=== PATIENT | male | born 1975 | race Caucasian/White ===

== ENCOUNTER 2021-09-26 | Outpatient (REF) | payer OTHER, SELFPAY ==
[2021-09-27 12:57] LABS: Influenza A PCR NEGATIVE (Negative); Influenza B PCR NEGATIVE (Negative); Resp Syncy Virus RNA Qual PCR NEGATIVE (Negative); SARS COV2 PCR INHOUSE NEGATIVE (Negative)
== END 2021-09-26 00:01 | disposition home or self-care (01) ==
LOC: HO.LNP
PROVIDERS: Visit Provider Physician Assistant Medical
DX: Z20.822 Contact with and (suspected) exposure to COVID-19 (principal); J06.9 Acute upper respiratory infection, unspecified
CPT/HCPCS: 0241U

== ENCOUNTER 2021-09-26 15:46 | Outpatient (REF) | payer OTHER, SELFPAY ==
--- NOTE | ~2021-09-26 | XR_ITS ---
EXAMINATION: XR CHEST CLINICAL INFORMATION: Cough, unspecified. R05.9 COMPARISON: Chest radiographs 05/05/2013 TECHNIQUE: 2 views of the chest were obtained. FINDINGS: There is some subtle airspace opacity adjacent to left cardiac border at the inferior lingula. The remainder the lungs are clear. There is no lobar or segmental airspace consolidation or effusion. Small right apical blebs again suggested. The heart is normal in size. The costophrenic sulci are clear. The hilar and mediastinal contours are normal. There is probable old posttraumatic deformity left anterior lateral sixth rib, not demonstrated on prior exam 2012. XR/XR chest 2V IMPRESSION: 1. Small patchy airspace opacity inferior lingula left anterior base. No effusion. 2. Probable healed left anterolateral sixth rib fracture.
== END 2021-09-26 15:47 | disposition home or self-care (01) ==
LOC: HO.HMGCX 15:46
PROVIDERS: Visit Provider Physician Assistant Medical
DX: R05.9 Cough, unspecified (principal)
CPT/HCPCS: 71046

== ENCOUNTER 2022-07-03 14:46 | Outpatient (REF) | payer OTHER, SELFPAY ==
--- NOTE | ~2022-07-03 | XR_ITS ---
EXAMINATION: XR RIBS, RIGHT CLINICAL INFORMATION: Contusion of chest wall COMPARISON: Previous chest x-ray most recent September 2021 TECHNIQUE: 3 views of the right ribs were obtained. FINDINGS: Lungs are clear. No consolidation, pneumothorax, or pleural effusion. The cardiomediastinal silhouette and pulmonary vasculature are normal. There are degenerative changes of the spine. No acute rib fracture is seen. There are old left anterior fourth and sixth rib fractures.. XR/XR ribs RT min 3V w CXR1V IMPRESSION: No evidence for acute disease in the chest. No acute rib fracture seen.
== END 2022-07-03 14:47 | disposition home or self-care (01) ==
LOC: HO.HMGCX 14:46
PROVIDERS: Visit Provider Internal Medicine
DX: S20.211A Contusion of right front wall of thorax, initial encounter (principal)
CPT/HCPCS: 71101

== ENCOUNTER 2025-08-31 05:38 | Inpatient (IN) | payer MEDICAID, SELFPAY ==
--- NOTE | ~2025-08-31 | XR_ITS ---
EXAMINATION: XR CHEST CLINICAL INFORMATION: dyspnea, smoker COMPARISON: 07/03/2022. TECHNIQUE: 2 views of the chest were obtained. FINDINGS: The cardiac, hilar, and mediastinal contours are normal. The lungs are diffusely hyperaerated, with flattened hemidiaphragms. There is a subtle airspace opacity in the left upper lobe region. Lungs otherwise clear. There is no pneumothorax or pleural effusion. There is no focal osseous or soft tissue abnormality. Healed left-sided rib fractures are noted. Mild degenerative changes throughout the spine. XR/XR chest 2V IMPRESSION: 1. COPD. 2. Findings suspicious for a subtle left upper lobe pneumonia. Electronically signed by: Derek Mora MD 08/31/2025 08:16 AM EDT
--- NOTE | ~2025-08-31 | CT_ITS ---
EXAMINATION: CT CHEST WITHOUT CONTRAST CLINICAL INFORMATION: Pneumonia COMPARISON: None available. TECHNIQUE: Multidetector volumetric CT imaging of the chest was done. Axial MIP volume rendering provided. Sagittal and coronal reformatted images were obtained. This CT examination was performed using dose optimization techniques as appropriate, variously including the following: *Automated exposure control *Adjustment of mA and/or kV according to patient size (this includes techniques or standardized protocols for targeted exams where dose is matched to indication/reason for exam; i.e. extremities or head) *Use of iterative reconstruction technique FINDINGS: LUNGS: Centrilobular and paraseptal emphysema is noted in the lung apexes Vague opacity noted in the left upper lung zone on chest x-ray was probably related to overlap of bony and vascular structures, and no corresponding density is present on CT. Linear atelectasis present in the posterior basilar right lower lobe. MEDIASTINUM: The mediastinum is normal. CORONARY ARTERY CALCIFICATION: Present PLEURA: There is no pleural effusion. No pleural mass or thickening. AXILLA: No lymphadenopathy. UPPER ABDOMEN: Unremarkable. OSSEOUS STRUCTURES: Bridging anterior osteophytes are present in the mid to upper thoracic spine. CT/CT chest wo IV con IMPRESSION: Vague opacity present on today's x-ray is likely related to overlapping structures. No obvious demonstrated on CT. Mild changes of emphysema are present in the lung apexes. Mild degenerative disc disease is present in the mid to upper thoracic spine. Fleischner guidelines were followed. Electronically signed by: Wood Black MD 08/31/2025 12:03 PM EDT
[2025-08-31 05:42] VITALS: BP 145/99; BP 182/114; PULSE 108; PULSE 65; RESP 16; TEMP 36.6; O2SAT 96; O2SAT 99; BMI 25.4
[2025-08-31 05:46] VITALS: BP 145/99; PULSE 111; RESP 20; TEMP 36.4; O2SAT 96
[2025-08-31 05:55] LABS: Glucose, Whole Blood 134 mg/dL (60-115)
--- OUTSIDE RECORDS SUMMARY | 2025-08-31 06:28 | XMS_ITS | Patient Health Record ---
Author Organization [facility] Address [address] [place] [address] Care Team Providers Care Belt Notcher Name Role Phone Ladarius Flores M.D. Primary Care Provider Anahy hungjacobBarry Dunne Unavailable [phone] Reason For Referral No Information Medications Medication SIG (Take, Route, Fr equency, Duration) Notes Start Date End Date Status Omeprazole 20mg 2 capsules Orally On ce a day; Duration: 30 days Active PriLOSEC OTC 20 mg TAKE 2 TABLET BY MING TH IN THE MORNING; Duration: 30 Active Problems Problem Type SNOMED Code ICD Code Onset Dates Problem Status W/U Status Risk Notes Problem Barretts esophagus (891313234) Barretts esophagus (530.85) Active confirmed Problem Gastroesophageal reflux disease (136520075) GERD (gastroesopha geal reflux disease) (530.81) Active confirmed Plan Of Treatment Future Test Test Name Order Date UPPER GI ENDOSCOPY 04/17/2012 Insurance Providers Payer Name Payer Address Payer Phone Subscriber Number Group Number Insured Name Patient Relationship to Insured Coverage Start Date Coverage End Date [facility] [facility] [address] [address] [place], [place] [id number] JORGE ALBERTO PATEL Self - patient is the insured MEDICAID OF [facility] [address] [place] [address] [id number] JORGE ALBERTO PATEL Self - patient is the insured Medical (General) History Medical History History ICD Code egd 08-27-2006 and 08/26 esophageal reflux vargas's esophagus asthma Denies [place],DM,CVA,renal disease Surgical History Surgery Date(Month/Year) hernia surgery
--- NOTE | 2025-08-31 06:51 | ED.GENADULT ---
HPI - General Adult General Chief complaint: Extremity Problem Stated complaint: BILATERAL LEG PAIN/NUMBNESS/HX OF ASTHMA Time Seen by Provider: 08/31/25 06:51 History of Present Illness ED Provider: Tejas MORRISON narrative: The patient is a 50-year-old male who comes to the emergency room by ambulance because of pains in both of his legs. He says he has been having intermittent pains in his legs for approximately a year. The pains wax and wane. Last night the pain was so bad that he felt he had come to the hospital because of the pains. The patient has not seen a doctor in several years. He says that he used to have a primary care doctor named Dr. Flores but Dr. Flores retired and he has not seen a doctor in several years. The patient is an alcoholic. He says that he has 6-8 hard seltzers every day. He is a long-term smoker who still smokes. 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 He says that he [place] his own [place]. He says [place] the [place]. He says that he lives on an inheritance from his parents. He says he has a trust which gives him regular pain and some money. He lives with his girlfriend. He says he has a history of asthma but has not seen a doctor in any time recently and he treats himself with Primatene mist which he buys [id number]. He says that he uses a Primatene mist inhaler almost every day. With regard to the pains in his legs he says that these pains has been coming and going for a year. He also says that 3 weeks ago when the pains were severe he almost passed out at his house. He has had no trauma. No fever, sweats, chills. Related Data Home Medications ?Medication ?Instructions ?Recorded ?Confirmed omeprazole 20 mg capsule,delayed 40 mg PO DAILY 09/26/21 07/12/22 release Previous Rx's ?Medication ?Instructions ?Recorded albuterol sulfate 90 mcg/actuation 2 puff inhalation Q6H PRN 09/26/21 aerosol inhaler shortness of breath or wheezing #6.7 grams doxycycline hyclate 100 mg tablet 100 mg PO BID 7 days #14 tabs 09/26/21 meloxicam 15 mg tablet 15 mg PO DAILY #14 tabs 07/03/22 Allergies Allergy/AdvReac Type Severity Reaction Status Date / Time No Known Allergies Allergy Verified 08/31/25 05:47 Review of Systems Review of Systems: Yes all other systems are reviewed and are negative [facility] Past Medical History Medical History (Updated 08/31/25 @ 10:53 by Shaylee Magallanes NP) COPD (chronic obstructive pulmonary disease) Surgical History (Updated 08/31/25 @ 11:22 by Shaylee Magallanes NP) H/O hernia repair Family History Family History (Updated 08/31/25 @ 11:21 by Shaylee Magallanes NP) Father Cancer Social History Social History (Updated 08/31/25 @ 10:56 by Shaylee Magallanes NP) Alcohol intake: current Alcohol intake frequency: 3 or more drinks per day Alcohol type: hard liquor Comment: Twelve white claws a day Patient Tobacco Use Status: Current everyday Tobacco user Cigarette Packs Per Day: 1 Smoked in Last 30 Days: Yes Use of substances other than those prescribed or required for medical reasons: Yes Substance Use Type: Marijuana Substance Use Frequency: Chronic Longstanding Last Used Substance: Days (ago) Any prior treatment program specific to substance use: No Advance Directives: No Advance Directives Information Provided: Yes Physical Exam ED Vital Signs: Vital Signs - 24 hr 08/31/25 05:42 08/31/25 05:46 08/31/25 09:50 Temperature 97.8 F 97.6 F 98.3 F Pulse Rate 108 H 111 H 99 Respiratory Rate 16 20 20 Blood Pressure 145/99 H 145/99 H 180/130 H Pulse Oximetry 96 96 96 Oxygen Delivery Method Room Air Room Air Room Air BMI result Body Mass Index 25.4 Const Other: The patient is a 50-year-old male who looks disheveled and chronically ill. HENMT Other: The patient has poor dentition. Mucous membranes are moist. The face is symmetrical. Eyes Other: Pupils are round equal, conjunctivae are clear, extraocular movements intact Neck Neck: Yes normal visual inspection, Yes full ROM and Yes no JVD Resp Effort & Inspection: normal respiratory effort Auscultation: clear to auscultation bilaterally Cardio Rate: tachycardic Rhythm: regular rhythm Heart sounds: S1 normal heart sound present and S2 normal heart sound present GI Other: The abdomen is soft and nontender Skin Other: Skin is pale and dry Neuro Other: The patient is awake and alert with a normal mental status. GCS is 15. Cognition is intact. No marked tremor. Cranial nerves 2-12 are intact. He moves his extremities symmetrically and appropriately. He seems grossly neurologically intact. Extrem Other: No peripheral edema. No calf swelling or tenderness. Good pulses in both feet. Medications Administered Generic Name Dose Route Start Last Admin Trade Name Freq PRN Reason Stop Dose Admin Albuterol Sulfate 2.5 mg 08/31/25 12:00 08/31/25 11:17 Albuterol Sulfate (0.083%) 2.5 Mg/3 Ml Vial.Neb INHALE 2.5 mg RQ4H WHILE AWAKE JUN Administration Enoxaparin Sodium 40 mg 08/31/25 12:00 08/31/25 12:11 Enoxaparin Sodium 40 Mg/0.4 Ml Syringe SUBCUT 40 mg Q24H JUN Administration Gabapentin 100 mg 08/31/25 11:05 08/31/25 12:11 Gabapentin 100 Mg Capsule PO 100 mg TID JUN Administration Potassium Chloride/Sodium Chloride 40 meq in 1,000 mls @ 250 mls/hr 08/31/25 08:45 08/31/25 10:31 Kcl 40 Meq In 0.9 % Sodium Chl IV 08/31/25 12:44 250 mls/hr .Q4H JUN Administration Magnesium Oxide 400 mg 08/31/25 10:05 08/31/25 10:47 Magnesium Oxide 400 Mg Tablet PO 400 mg BIDPC JUN Administration Discontinued Medications Generic Name Dose Route Start Last Admin Trade Name Freq PRN Reason Stop Dose Admin Famotidine 20 mg 08/31/25 11:16 08/31/25 12:10 Famotidine/Pf 20 Mg/2 Ml Vial IVPUSH 08/31/25 11:17 20 mg ONCE ONE Administration Thiamine HCl 100 mg/ Sodium 101 mls @ 202 mls/hr 08/31/25 07:22 08/31/25 09:37 Chloride IV 08/31/25 07:51 Infused ONCE ONE Infusion Folic Acid 1 mg/ Sodium 50.2 mls @ 100.4 mls/hr 08/31/25 08:00 08/31/25 09:38 Chloride IV 08/31/25 08:29 Infused ONCE ONE Infusion Magnesium Sulfate 2 gm in 50 mls @ 150 mls/hr 08/31/25 08:15 08/31/25 10:08 Magnesium Sulfate/H2o IV 08/31/25 08:34 Infused ONCE ONE Infusion Magnesium Sulfate 2 gm in 50 mls @ 150 mls/hr 08/31/25 10:01 08/31/25 11:16 Magnesium Sulfate/H2o IV 08/31/25 10:20 Infused ONCE ONE Infusion Phenobarbital Sodium 312 mg 08/31/25 11:00 08/31/25 12:14 Phenobarbital Sodium 130 Mg/Ml Im Once IM 08/31/25 11:01 312 mg ONCE ONE Administration Potassium Chloride 40 meq 08/31/25 09:36 08/31/25 09:49 Potassium Chloride Packet 20 Meq Packet PO 08/31/25 09:37 40 meq ONCE ONE Administration Medical Decision Making Medical Decision Making [facility] Narrative: The patient is a 50-year-old male who seems to be a significant alcoholic and a heavy smoker. He presents with a bilateral leg pain which has been bothering him for a long time. His testing in the emergency room reveals a potassium of 2.5 and a magnesium of 1.0. It is possible his pain could be related to these metabolic abnormalities. Additionally he was hypertensive and tachycardic. He normally drinks 6-8 hard seltzers daily. His last alcohol was yesterday afternoon. His alcohol is undetectable at the moment. I suspect he has an early withdrawal. We have ordered magnesium and potassium supplementation. Given the degree of his electrolyte abnormalities and given his hypertension and tachycardia I think that admission to the hospital with treatment for alcohol withdrawal and electrolyte replacement is reasonable. I contacted the hospitalist. The patient will be admitted for further care. He was also given thiamine and folate. He was started on the phenobarb protocol. Lab Data 08/31/25 07:31 08/31/25 07:31 Labs: Lab Results 08/31/25 08/31/25 08/31/25 Range/Units 05:51 07:31 07:38 WBC 9.5 (4.8-10.8) X10*3/uL RBC 3.13 L (4.60-5.80) X10*6/uL Hgb 11.0 L (14.0-18.0) g/dl Hct 30.0 L (42.0-52.0) % MCV 95.8 (80.0-98.0) fL MCH 35.1 H (27.0-33.0) pg MCHC 36.7 H (31.0-36.0) g/dl RDW 17.7 H (11.0-16.0) % Plt Count 300 (160-400) X10*3/uL MPV 10.2 (9.4-12.4) fL Immature Gran % (Auto) 0.6 H (0.0-0.4) % Neut % (Auto) 77.8 H (45-73) % Lymph % (Auto) 13.0 L (20-40) % [place] % (Auto) 7.8 (2-11) % Eos % (Auto) 0.2 (0-4) % Baso % (Auto) 0.6 (0-2) % Lymph # (Auto) 1.2 (1.2-4.9) X10*3/uL [place] # (Auto) 0.7 (0.1-1.2) X10*3/uL Eos # (Auto) 0.0 (0.0-0.4) X10*3/uL Baso # (Auto) 0.1 (0.0-0.2) X10*3/uL Abs Immat Gran (auto) 0.06 H (0.00-0.03) X10*3/uL Absolute Neuts (auto) 7.4 (2.0-8.3) x10*3/uL Absolute Nucleated RBC 0.000 (0.0-0.012) X10*3/uL Nucleated RBC % (auto) 0.0 (0.0-0.2) /100WBC PT 13.2 H (10.9-12.4) SEC INR 1.2 H (0.9-1.1) VBG pH 7.67 H* (7.32-7.43) VBG pCO2 38 mmHg VBG pO2 48 mmHg VBG HCO3 44 H (22-26) mmol/L VBG O2 Saturation 74.0 % VBG Base Excess 22.4 mmol/L Sodium 139 (135-145) mmol/L Potassium 2.5 L* (3.3-5.1) mmol/L Chloride 89 L (96-108) mmol/L Carbon Dioxide 35 H (22-29) mmol/L Anion Gap 18 (12-20) BUN 5 L (9-16) mg/dL Creatinine 0.59 (0.5-1.4) mg/dL Estim Creat Clear Calc 164.4 Estimated GFR > 60 POC Glucose 134 H (60-115) mg/dL Random Glucose 111 (60-115) mg/dL Calcium 7.6 L (8.4-10.2) mg/dL Magnesium 1.0 L* (1.6-2.6) mg/dL Total Bilirubin 1.1 H (0.0-1.0) mg/dL Direct Bilirubin 0.5 (0.0-0.5) mg/dL AST 66 H (5-37) U/L ALT 8 (0-40) U/L Alkaline Phosphatase 94 (39-117) U/L Total Creatine Kinase 53 (38-174) U/L Troponin I High Sens 18.9 (<3.5-35.0) ng/L C-Reactive Protein 4.27 H (< or = 0.50) mg/dL Total Protein 6.2 L (6.5-8.0) g/dL Albumin 3.3 L (3.5-5.0) g/dL Lipase 13 (8-78) U/L Ethyl Alcohol < 10 mg/dL Independent Interpretation I performed an independent interpretation of an: EKG Interpretation: EKG at 07:11 shows normal sinus rhythm at 100 beats per minute. There is a lot of artifact in the baseline of the EKG. No definite acute ischemic changes. QTc mildly prolonged at 528. Critical Care Time Critical Care Time Critical Care Time: Yes Total Critical Care Time: 35 Attestation: The patient was critically ill with a high probability of imminent or life-threatening deterioration. ?I spent greater than 30 minutes of discontinuous time evaluating the patient, delivering critical care at the bedside, discussing evaluating data with consultants. ?Critical care time does not include time spent performing separately billable procedures or teaching. ?Time spent performing critical care with 35 minutes. Discharge Plan Discharge Clinical Impression: Hypokalemia, Hypomagnesemia, Alcoholism, Alcohol withdrawal, Leg pain, bilateral Patient Disposition: Admitted As Inpatient
--- NOTE | 2025-08-31 07:01 | ECG_ITS ---
Test Reason : leg pain Blood Pressure : */* mmHG Vent. Rate : 100 BPM Atrial Rate : 100 BPM P-R Int : 168 ms QRS Dur : 82 ms QT Int : 410 ms P-R-T Axes : 21 19 65 degrees QTcB Int : 528 ms Normal sinus rhythm Nonspecific ST abnormality Abnormal ECG When compared with ECG of 03-Sep-2019 09:47, QT has lengthened Referred By: Rob Lazaro Electronically Signed By: Sina Ogden
[2025-08-31 07:38] LABS: MANUAL DIFF FLAG NO
[2025-08-31 07:46] LABS: INTERNATIONAL NORM RATIO 1.2 (0.9-1.1); Prothrombin Time 13.2 SEC (10.9-12.4); Venous Blood Gas Refer to POC result
[2025-08-31 07:47] LABS: VBG HCO3 44 mmol/L (22-26); VBG O2 % Saturation 74.0 %
[2025-08-31 07:52] LABS: Hematocrit 30.0 % (42.0-52.0); Hemoglobin 11.0 g/dl (14.0-18.0); Imm Gran Abs Auto 0.06 X10*3/uL (0.00-0.03); Imm Gran Pct Auto 0.6 % (0.0-0.4); Lymphocytes Absolute Auto 1.2 X10*3/uL (1.2-4.9); Mean Corpuscular HGB Conc 36.7 g/dl (31.0-36.0); Mean Corpuscular Hemoglobin 35.1 pg (27.0-33.0); Mean Corpuscular Volume 95.8 fL (80.0-98.0); NRBC Abs Auto 0.000 X10*3/uL (0.0-0.012); NRBC Pct Auto 0.0 /100WBC (0.0-0.2); Platelet Count 300 X10*3/uL (160-400); Red Blood Count 3.13 X10*6/uL (4.60-5.80); White Blood Count 9.5 X10*3/uL (4.8-10.8)
[2025-08-31 08:00] LABS: Troponin-I High Sensitivity 18.9 ng/L (<3.5-35.0)
[2025-08-31 08:07] LABS: Alanine Aminotransferase 8 U/L (0-40); Albumin Level 3.3 g/dL (3.5-5.0); Alkaline Phosphatase 94 U/L (39-117); Anion Gap 18 (12-20); Aspartate Amino Transferase 66 U/L (5-37); Blood Urea Nitrogen 5 mg/dL (9-16); Calcium 7.6 mg/dL (8.4-10.2); Carbon Dioxide 35 mmol/L (22-29); Chloride 89 mmol/L (96-108); Creatinine Clr Calc Pharmacy 164.4; Estimated Glomerular Filt Rate > 60; Lipase 13 U/L (8-78); Magnesium 1.0 mg/dL (1.6-2.6); Potassium 2.5 mmol/L (3.3-5.1); Sodium 139 mmol/L (135-145); Total Protein 6.2 g/dL (6.5-8.0)
[2025-08-31] MEDS: Thiamine HCL 100 MG in 0.9 % Sodium Chloride 100 ML 202 MG IV (08:55)
[2025-08-31] MEDS: Magnesium Sulfate/H2O 2 GM/50 ML PIGGYBACK IV ×2 (09:46→10:47)
[2025-08-31] MEDS: Potassium Chloride Packet 20 MEQ PACKET 40 MEQ PO (09:49)
[2025-08-31 09:50] VITALS: BP 180/130; PULSE 99; RESP 20; TEMP 36.8; O2SAT 96
--- NOTE | 2025-08-31 10:00 | PM.IMHP ---
History of Present Illness Date of Service: 08/31/25 Chief Complaint: Leg pain 50-year-old man presented to the ER with complaints of worsening leg pain which he reports has been intermittent over the last year. Patient reports that the pain waxes and wanes, it is sharp and burning in nature. He reported that it was so bad he needed to come to the ER for further evaluation. He reports that he has not seen a primary care doctor in at least 5 years. He does drink at least 12 heart is ulcers a day and has been doing so more heavily over the last 6 weeks. He reports he is not employed so it makes it easier for him to drink heavier and more often. He also reported some nausea, vomiting and diarrhea more recently but he said that it does come and go occasionally in he thinks it is probably from his alcohol use. In the ER, potassium was noted to be 2.5 BUN 5, calcium 7.6, magnesium 1.0, total bili 1.1, chest x-ray showed COPD and findings suspicious for left upper lobe pneumonia. Blood pressure was noted to be elevated with the highest reading of 180/130 she could likely be related to withdrawal symptoms. Patient was given IV thiamine, IV folic acid, IV magnesium, oral potassium and started on phenobarbital in the ER. 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 Review of Systems Review of Systems: Denies any recent fever chills or decrease in appetite respiratory denies any shortness of breath or cough cardiovascular denied chest pain gastrointestinal see HPI genitourinary denies any dysuria frequency or hematuria musculoskeletal denies any joint pain or swelling neuropsych denies any weakness or seizures all other systems reviewed are negative [facility] Medical History (Updated 08/31/25 @ 10:53 by Shaylee Magallanes NP) COPD (chronic obstructive pulmonary disease) Family History (Updated 08/31/25 @ 11:21 by Shaylee Magallanes NP) Father Cancer Surgical History (Updated 08/31/25 @ 11:22 by Shaylee Magallanes NP) H/O hernia repair Social History (Updated 08/31/25 @ 10:56 by Shaylee Magallanes NP) Alcohol intake: current Alcohol intake frequency: 3 or more drinks per day Alcohol type: hard liquor Comment: Twelve white claws a day Patient Tobacco Use Status: Current everyday Tobacco user Cigarette Packs Per Day: 1 Smoked in Last 30 Days: Yes Use of substances other than those prescribed or required for medical reasons: Yes Substance Use Type: Marijuana Substance Use Frequency: Chronic Longstanding Last Used Substance: Days (ago) Any prior treatment program specific to substance use: No Advance Directives: No Advance Directives Information Provided: Yes Meds Allergies Allergy/AdvReac Type Severity Reaction Status Date / Time No Known Allergies Allergy Verified 08/31/25 05:47 Active Medications: Current Medications Potassium Chloride/Sodium Chloride (Kcl 40 Meq In 0.9 % Sodium Chl) 40 meq in 1,000 mls @ 250 mls/hr IV .Q4H JUN Stop: 08/31/25 12:44 Home Medications ?Medication ?Instructions ?Recorded ?Confirmed ?Last Taken ?Type omeprazole 20 mg capsule,delayed 40 mg PO DAILY 09/26/21 07/12/22 Unknown History release Physical Exam Vital Signs and Narrative: Vital Signs: Last Vital Signs Temp 98.3 F 08/31/25 09:50 Pulse 99 08/31/25 09:50 Resp 20 08/31/25 09:50 BP 180/130 H 08/31/25 09:50 Pulse Ox 96 08/31/25 09:50 O2 Del Method Room Air 08/31/25 09:50 BMI result Body Mass Index 25.4 Appearing in no acute distress head is normocephalic atraumatic eyes pupils are PERRLA sclera is anicteric mouth throat mucous membranes are intact and moist neck is supple no lymphadenopathy, no JVD noted lung sounds are clear to auscultation heart regular rate rhythm, clear S1, S2 positive bowel sounds, abdomen is soft, nontender neuro patient is alert x3, no focal deficits Results Labs 08/31/25 07:31 08/31/25 07:31 Labs: Laboratory Results - last 24 hr 08/31/25 08/31/25 08/31/25 05:51 07:31 07:38 MCV 95.8 MCH 35.1 H MCHC 36.7 H RDW 17.7 H Plt Count 300 MPV 10.2 Immature Gran % (Auto) 0.6 H Neut % (Auto) 77.8 H Lymph % (Auto) 13.0 L [place] % (Auto) 7.8 Eos % (Auto) 0.2 Baso % (Auto) 0.6 Lymph # (Auto) 1.2 [place] # (Auto) 0.7 Eos # (Auto) 0.0 Baso # (Auto) 0.1 Abs Immat Gran (auto) 0.06 H Absolute Neuts (auto) 7.4 Absolute Nucleated RBC 0.000 Nucleated RBC % (auto) 0.0 PT 13.2 H INR 1.2 H VBG pH 7.67 H* VBG pCO2 38 VBG pO2 48 VBG HCO3 44 H VBG O2 Saturation 74.0 VBG Base Excess 22.4 Anion Gap 18 Estim Creat Clear Calc 164.4 Estimated GFR > 60 POC Glucose 134 H Random Glucose 111 Calcium 7.6 L Magnesium 1.0 L* Total Bilirubin 1.1 H Direct Bilirubin 0.5 AST 66 H ALT 8 Alkaline Phosphatase 94 Total Creatine Kinase 53 Troponin I High Sens 18.9 C-Reactive Protein 4.27 H Total Protein 6.2 L Albumin 3.3 L Lipase 13 Ethyl Alcohol < 10 Imaging Radiologist's Impressions: Impressions Chest X-Ray 08/31/25 07:30 IMPRESSION: 1. COPD. 2. Findings suspicious for a subtle left upper lobe pneumonia. Electronically signed by: Derek Mora MD 08/31/2025 08:16 AM EDT RP Assessment and Plan (1) Alcoholism: Status: Acute (2) Alcohol withdrawal: Status: Acute Plan 50 year old man admitted with leg pain, n,v, d with a history of alcohol abuse Alcoholic polyneuropathy Normal CPK Start gabapentin 100mg TID May need EMG outpatient Alcohol abuse Drinks at least 12 white Claws a day Started on phenobarbital protocol Monitor closely for any severe signs of withdrawal Thiamine, multivitamin, folic acid Addiction Medicine consult Add protein to diet Gastritis Likely from alcohol abuse No further episodes of nausea or vomiting IV Pepcid Hypokalemia Secondary to alcohol abuse and poor p.o. intake as well as GI losses Replete with IV and p.o. Hypomagnesemia Secondary to alcohol abuse and poor p.o. intake as well as GI losses Replete with IV and p.o. COPD No exacerbation Albuterol as needed Normocytic anemia No signs of bleeding Stable H&H Smoker Nicotine replacement therapy Discussed the importance of smoking cessation Chest x-ray with findings suspicious of left upper lobe pneumonia Check chest CT to get better imaging DVT prophylaxis with Lovenox Full code Patient will require at least 2 days of admission for alcohol withdrawal as patient may take 24-72 hours draw symptoms to appear and multiple electrolyte abnormalities that require IV and oral replacement. Quality Stroke Does the patient have a stroke diagnosis?: No VTE Prior VTE?: No VTE Risk Level:: Medical - moderate - high VTE Device Contraindication: Treatment Not Indicated VTE Drug Contraindication: N/A - Med Ordered
[2025-08-31] MEDS: KCl 40 mEq in 0.9 % Sodium Chl 40 MEQ/1,000 ML IV.SOLN 250 MEQ IV (10:31)
--- NOTE | 2025-08-31 10:47 | PC.NURSE ---
contacted Jamil Magallanes NP about second Mag order. OK to give 2nd 2g dose after first, also to be infused over 20min
[2025-08-31] MEDS: Albuterol Sulfate (0.083%) 2.5 MG/3 ML VIAL.NEB INHALE (11:17)
[2025-08-31 11:18] VITALS: PULSE 99; RESP 20; O2SAT 96
[2025-08-31] MEDS: PHENobarbitaL sodium 130 MG/ML IM ONCE 312 MG IM (12:14)
[2025-08-31 12:28] LABS: Appearance Urine Clear; Glucose Urine UA Negative (Negative); PH >= 9.0 (5.0-9.0); Specific Gravity - Urine 1.010 (1.005-1.025)
[2025-08-31 12:46] LABS: Cannabinoid Screen Urine POSITIVE (Not Detect)
--- NOTE | 2025-08-31 14:18 | PHA.MEDREC ---
Addendum entered by Álvaro Davila RPh 08/31/25 14:20: Reviewed by [facility] Original Note: Pharmacy Consult ? Medication Reconciliation Pharmacy has completed the medication reconciliation. patient was able to confirm his medications.
[2025-08-31 14:47] VITALS: BP 180/116; PULSE 99; RESP 20; O2SAT 99
--- NOTE | 2025-08-31 14:54 | PM.DS ---
DS: Providers Provider Date of Service: 08/31/25 Date of admission: 08/31/25 11:04 Date of discharge: 08/31/25 Primary care physician: None Physician Consults: 08/31/25 11:13 Addiction Medicine Provider Routine Consulting Provider: Addiction Covering Reason for consultation: ETOH DS: Diagnosis Discharge Diagnosis (1) Alcoholism: Status: Acute (2) Alcohol withdrawal: Status: Acute DS: Summary Hospital Course Hospital Course: from initial hpi: 50-year-old man presented to the ER with complaints of worsening leg pain which he reports has been intermittent over the last year. Patient reports that the pain waxes and wanes, it is sharp and burning in nature. He reported that it was so bad he needed to come to the ER for further evaluation. He reports that he has not seen a primary care doctor in at least 5 years. He does drink at least 12 heart is ulcers a day and has been doing so more heavily over the last 6 weeks. He reports he is not employed so it makes it easier for him to drink heavier and more often. He also reported some nausea, vomiting and diarrhea more recently but he said that it does come and go occasionally in he thinks it is probably from his alcohol use. In the ER, potassium was noted to be 2.5 BUN 5, calcium 7.6, magnesium 1.0, total bili 1.1, chest x-ray showed COPD and findings suspicious for left upper lobe pneumonia. Blood pressure was noted to be elevated with the highest reading of 180/130 she could likely be related to withdrawal symptoms. Patient was given IV thiamine, IV folic acid, IV magnesium, oral potassium and started on phenobarbital in the ER. 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 Gastritis treated with PPI and Pepcid. Severe acute hypokalemia and hypomagnesemia (likely contributing to neuropathy) given replacement. Patient had ongoing severe electrolyte abnormalities but requested leave against medical advice. He was able to express understanding of the risks of doing so including . Time Attestation Discharge Coordination Time (in mins): 32 Quality: Safe Use of Opioids Does Pt have an Active Cancer Diagnosis on the Problem List?: No Quality: Stroke Does the patient have a stroke diagnosis?: No Physical Exam Exam: Exam: General: AO X 3, no acute distress Resp: CTA bilateral, no accessory muscles used CVS: S1,S2,RRR GI: soft, non tender, non distended Neuro: motor grossly intact, alert Psych: appropriate affect, appropriate insight Vital Signs: Vital Signs: Last Vital Signs Temp 98.3 F 08/31/25 09:50 Pulse 99 08/31/25 14:47 Resp 20 08/31/25 14:47 BP 180/116 H 08/31/25 14:47 Pulse Ox 99 08/31/25 14:47 O2 Del Method Room Air 08/31/25 14:47 BMI result Body Mass Index 25.4 DS: Data Data Completed and Pending Labs on day of discharge: Laboratory Results - last 24 hr 08/31/25 08/31/25 08/31/25 05:51 07:31 07:38 WBC 9.5 RBC 3.13 L Hgb 11.0 L Hct 30.0 L MCV 95.8 MCH 35.1 H MCHC 36.7 H RDW 17.7 H Plt Count 300 MPV 10.2 Immature Gran % (Auto) 0.6 H Neut % (Auto) 77.8 H Lymph % (Auto) 13.0 L [place] % (Auto) 7.8 Eos % (Auto) 0.2 Baso % (Auto) 0.6 Lymph # (Auto) 1.2 [place] # (Auto) 0.7 Eos # (Auto) 0.0 Baso # (Auto) 0.1 Abs Immat Gran (auto) 0.06 H Absolute Neuts (auto) 7.4 Absolute Nucleated RBC 0.000 Nucleated RBC % (auto) 0.0 PT 13.2 H INR 1.2 H VBG pH 7.67 H* VBG pCO2 38 VBG pO2 48 VBG HCO3 44 H VBG O2 Saturation 74.0 VBG Base Excess 22.4 Sodium 139 Potassium 2.5 L* Chloride 89 L Carbon Dioxide 35 H Anion Gap 18 BUN 5 L Creatinine 0.59 Estim Creat Clear Calc 164.4 Estimated GFR > 60 POC Glucose 134 H Random Glucose 111 Calcium 7.6 L Magnesium 1.0 L* Total Bilirubin 1.1 H Direct Bilirubin 0.5 AST 66 H ALT 8 Alkaline Phosphatase 94 Total Creatine Kinase 53 Troponin I High Sens 18.9 C-Reactive Protein 4.27 H Total Protein 6.2 L Albumin 3.3 L Lipase 13 Urine Color Urine Appearance Urine pH Ur Specific [place] Urine Protein Urine Glucose (UA) Urine Ketones Urine Blood Urine Nitrite Ur Leukocyte Esterase Urine Opiates Screen Ur Buprenorphine Scrn Ur Oxycodone Screen Urine Methadone Screen Urine Fentanyl Screen Ur Barbiturates Screen Ur Phencyclidine Scrn Ur Amphetamines Screen U Benzodiazepines Scrn Urine Cocaine Screen U Marijuana (THC) Screen Ethyl Alcohol < 10 08/31/25 12:19 WBC RBC Hgb Hct MCV MCH MCHC RDW Plt Count MPV Immature Gran % (Auto) Neut % (Auto) Lymph % (Auto) [place] % (Auto) Eos % (Auto) Baso % (Auto) Lymph # (Auto) [place] # (Auto) Eos # (Auto) Baso # (Auto) Abs Immat Gran (auto) Absolute Neuts (auto) Absolute Nucleated RBC Nucleated RBC % (auto) PT INR VBG pH VBG pCO2 VBG pO2 VBG HCO3 VBG O2 Saturation VBG Base Excess Sodium Potassium Chloride Carbon Dioxide Anion Gap BUN Creatinine Estim Creat Clear Calc Estimated GFR POC Glucose Random Glucose Calcium Magnesium Total Bilirubin Direct Bilirubin AST ALT Alkaline Phosphatase Total Creatine Kinase Troponin I High Sens C-Reactive Protein Total Protein Albumin Lipase Urine Color Yellow Urine Appearance Clear Urine pH >= 9.0 Ur Specific [place] 1.010 Urine Protein Trace Urine Glucose (UA) Negative Urine Ketones Negative Urine Blood Negative Urine Nitrite Negative Ur Leukocyte Esterase Negative Urine Opiates Screen Not Detected Ur Buprenorphine Scrn Not Detected Ur Oxycodone Screen Not Detected Urine Methadone Screen Not Detected Urine Fentanyl Screen Not Detected Ur Barbiturates Screen Not Detected Ur Phencyclidine Scrn Not Detected Ur Amphetamines Screen Not Detected U Benzodiazepines Scrn Not Detected Urine Cocaine Screen Not Detected U Marijuana (THC) Screen POSITIVE H Ethyl Alcohol Discharge Plan Discharge Anticipated Discharge Date/Time: 08/31/25 14:53 Patient Disposition: Left Against Medical Advice Discharge Diagnosis: etoh dependence, hypomag Referrals: Physician,None [Primary Care Provider, Medical] - 1 Week Discharge Medications: Continued Primatene Mist 0.125 mg/actuation Hfa Aerosol Inhaler 1 puff INHALATION Q4H PRN (Reason: Shortness Of Breath Or Wheezing) Rx Instructions: may repeat once after 1 minute; do not exceed 8 inhalations per 24 hrs omeprazole 20 mg capsule,delayed release(DR/EC) 40 mg PO DAILY Discharge Orders: Discharge Order (Routine); Ordered 08/31/25 Ordered By: Alonso Whatley Diet: Advance to usual diet Activity on Discharge: As tolerated Print Language: Italian Care Plan Goals: recovery Health Concerns: etoh Plan of Treatment: left ama Assessment: see above
[2025-08-31 15:09] VITALS: BP 180/116; PULSE 99; RESP 20; TEMP 36.6; O2SAT 99
--- NOTE | 2025-08-31 15:09 | PC.NURSE ---
pt refused IM phenobarb. requested to leave AMA bc does not want to wait for room. Dr. Whatley notified who discharged pt AMA
== END 2025-08-31 15:08 | disposition left against medical advice (07) | DRG 48 ==
LOC: HO.ED 10:39 → HO.EDOVER 11:08
PROVIDERS: Admitting Provider Nurse Practitioner Acute Care; Emergency Provider Emergency Medicine; Visit Provider Internal Medicine
DX: G62.1 Alcoholic polyneuropathy (principal); J18.9 Pneumonia, unspecified organism; F10.20 Alcohol dependence, uncomplicated; F17.210 Nicotine dependence, cigarettes, uncomplicated; Z71.6 Tobacco abuse counseling; K29.20 Alcoholic gastritis without bleeding; E87.6 Hypokalemia; E83.42 Hypomagnesemia; D64.9 Anemia, unspecified; J44.0 Chronic obstructive pulmonary disease with (acute) lower respiratory infection; Z79.899 Other long term (current) drug therapy
CPT/HCPCS: 36415; 71046; 71250; 80048; 80076; 80307; 81003; 82550; 82803; 82947; 83690; 83735; 84484; 85025; 85610; 86140; 93005; 94640; 99285; J1308; J1650; J1808; J2560; J3411; J3475; J3480

== ENCOUNTER → 2025-08-31 07:01 | Outpatient (BNV) | payer MEDICAID, SELFPAY | PROVIDERS: Emergency Provider Emergency Medicine; Visit Provider Radiology Diagnostic Radiology | DX: J43.9 Emphysema, unspecified (principal); M51.34 Other intervertebral disc degeneration, thoracic region; J44.9 Chronic obstructive pulmonary disease, unspecified | CPT/HCPCS: 71046; 71250 ==

== ENCOUNTER → 2025-08-31 07:01 | Outpatient (BNV) | payer MEDICAID, SELFPAY | PROVIDERS: Admitting Provider Nurse Practitioner Acute Care; Emergency Provider Emergency Medicine; Visit Provider Internal Medicine Cardiovascular Disease | DX: R94.31 Abnormal electrocardiogram [ECG] [EKG] (principal); R00.0 Tachycardia, unspecified | CPT/HCPCS: 93010 ==

== ENCOUNTER → 2025-08-31 11:04 | Outpatient (BNV) | payer MEDICAID, SELFPAY | PROVIDERS: Admitting Provider Nurse Practitioner Acute Care; Emergency Provider Emergency Medicine; Visit Provider Nurse Practitioner Acute Care | DX: F10.20 Alcohol dependence, uncomplicated (principal); F10.939 Alcohol use, unspecified with withdrawal, unspecified | CPT/HCPCS: 99222; 99499 ==

== ENCOUNTER 2025-10-08 10:29 | Inpatient (IN) | payer OTHER, SELFPAY ==
[2025-10-08] VITALS (15 sets, daily range): BP systolic 109–147; BP diastolic 66–113; PULSE 91–112; RESP 15–34; TEMP 36.4–37.2; O2SAT 90–100; BMI 23.4
--- NOTE | ~2025-10-08 | US_ITS ---
CLINICAL HISTORY: pain bilat LE --- Additional Notes or Special Instructions: LE Pain Venous duplex ultrasound bilateral lower extremity Comparison: None provided Findings: The visualized deep veins are fully compressible with normal Doppler color flow and spectral tracings. No popliteal cyst. IMPRESSION: 1. Negative for bilateral lower extremity deep vein thrombosis. This document has been electronically signed by: Amy Galaviz MD on 10/08/2025 20:08:49
--- NOTE | ~2025-10-08 | CT_ITS ---
EXAMINATION: CT CERVICAL SPINE WITHOUT CONTRAST CLINICAL INFORMATION: Falls. COMPARISON: None available. TECHNIQUE: Axial imaging. Sagittal and coronal reconstructions. This CT examination was performed using dose optimization techniques as appropriate, variously including the following: *Automated exposure control *Adjustment of mA and/or kV according to patient size (this includes techniques or standardized protocols for targeted exams where dose is matched to indication/reason for exam; i.e. extremities or head) *Use of iterative reconstruction technique FINDINGS: Slightly prominent lordotic curvature of the cervical spine. Vertebral body sagittal alignment is maintained. Predens space is maintained. The craniocervical, atlantoaxial articulation is maintained. No evidence of acute fracture, compression deformity or subluxation. No suspicious bony lesions. Mild anterior endplate spurring of C5. No evidence of significant central canal narrowing. No prevertebral soft tissue swelling. Esophagus is nondistended. No suspicious thyroid findings. No pathologically enlarged lymph nodes is seen. The imaged inferior brain is evaluated on today's CT head. There is mild anterior subluxation of the bilateral mandibular heads at the temporomandibular joint. Emphysematous changes in bilateral lung apices. CT/CT cervical spine wo IV con IMPRESSION: No CT evidence of acute cervical spine fracture or traumatic malalignment. Mild anterior subluxation of bilateral mandibular heads at the temporomandibular joints. Additional findings and details as above. Fleischner guidelines were followed. Electronically signed by: West Maya MD 10/08/2025 01:56 PM [facility]
--- NOTE | ~2025-10-08 | CT_ITS ---
EXAMINATION: CT HEAD WITHOUT CONTRAST CLINICAL INFORMATION: Falls COMPARISON: None available. TECHNIQUE: Contiguous axial imaging was performed from the skull base to vertex without intravenous administration of contrast. This CT examination was performed using dose optimization techniques as appropriate, variously including the following: *Automated exposure control *Adjustment of mA and/or kV according to patient size (this includes techniques or standardized protocols for targeted exams where dose is matched to indication/reason for exam; i.e. extremities or head) *Use of iterative reconstruction technique DLP: 746.80 mGy-cm FINDINGS: No acute cortical disruption in the bony calvarium. No acute intracranial hemorrhage, mass effect, midline shift, hydrocephalus or herniation. Prominence of the extra-axial CSF spaces cerebral sulci and ventricles. Posterior cranial fossa contents demonstrated no acute hemorrhage or mass effect. Bilateral mild patchy deep periventricular white matter hypodensities. Questionable old lacunar infarct versus artifact, right midline thanh. Asymmetric prominent left lateral ventricle likely congenital variant. Calcified plaques in the cavernous segments both ICAs. No air-fluid levels in the paranasal sinuses. Tympanic cavities and mastoid cells are aerated. CT/CT head/brain wo IV con IMPRESSION: No acute fracture, bony calvarium. No acute intracranial hemorrhage. Small vessel occlusive disease, mild. Global cerebral atrophy. Electronically signed by: Jesus Rodriges MD 10/08/2025 01:53 PM EST
--- NOTE | ~2025-10-08 | XR_ITS ---
EXAMINATION: XR CHEST CLINICAL INFORMATION: Cough and fever COMPARISON: Previous chest x-ray August 2025 TECHNIQUE: Frontal view of the chest was obtained. FINDINGS: The lungs are clear. No pulmonary edema or consolidation. No pleural effusion or pneumothorax. Cardiac and mediastinal contours are normal. Mild curvature of the lower thoracic spine to the left and degenerative change.. XR/XR chest 1V IMPRESSION: No evidence of pneumonia. Electronically signed by: Jayne Lafleur MD 10/08/2025 12:21 PM [place]
--- NOTE | 2025-10-08 10:25 | ED_ITS ---
HPI - SOB/Dyspnea General Chief Complaint: General Medical Stated Complaint: SOB, dizziness, weakness Source: patient, EMS and old records reviewed Mode of arrival: EMS Limitations: other (Poor historian) History of Present Illness ED Provider: CHAU MORRISON Narrative: 50-year-old male with past medical history of alcohol use disorder but denies any prior seizures he drinks about 2 pints a day and a 12 pack, he was recently admitted here in August of 2025 for alcohol withdrawal, hypokalemia, hypomagnesemia, possible left lower lobe pneumonia. He left AMA during that visit. He comes in with complaint of 2 months of difficulty walking he has had recurrent falls where he did hit his head but no LOC, he notes increasing shortness of breath , cough, nausea, shakes. He has not drank since yesterday. He notes his arms and legs are cramping up. He has had diarrhea. He denies any fever, chest pain. He feels short of breath and that has been going on for the last 2 months. MD elicited complaint: shortness of breath, cough and anxiety Pertinent past history: pneumonia Onset (ago): month(s) (2+) Context: other (Alcohol use disorder) Timing: constant Severity: severe Exacerbating factors: exertion and coughing Relieving factors: rest Known history of: other Associated symptoms: cough, sputum production, nausea/vomiting and lightheadedness Treatment prior to arrival: none Related Data Home Medications ?Medication ?Instructions ?Recorded ?Confirmed omeprazole 20 mg capsule,delayed 40 mg PO DAILY 08/31/25 release epinephrine 0.125 mg/actuation 1 puff inhalation Q4H P RN 08/31/25 08/31/25 aerosol inhaler (Primatene Mist) Shortness Of Breath O r Wheezing Allergies Allergy/AdvReac Type Severity Reaction Status Date / Time No Known Allergies Allergy Verified 10/08/25 10:43 Review of Systems 2 Review of Systems: Constitutional : No Fever, No Chills ENT/Mouth : No Hoarseness, No sore throat, No Rhinorrhea Eyes: No Redness, No Discharge, No Vision Changes Cardiovascular : No Chest Pain, positive SOB, positive Dyspnea on Exertion, No Edema Respiratory : positive Cough, pos Sputum, positive Wheezing, Gastrointestinal : pos Nausea, No Vomiting, pos Diarrhea, No abdominal Pain Genitourinary : No Dysuria, No Hematuria Musculoskeletal : No joint pain, pos Myalgias Skin : No rash Neuro : No Weakness, No Numbness, No Headache Psych : No anxiety, depression All other systems reviewed and are negative [facility] Past Medical History Attestation statement: The following information was validated with the patient. Source: old records reviewed Medical History COPD (chronic obstructive pulmonary disease) Surgical History H/O hernia repair Family History Family History (Updated 08/31/25 @ 11:21 by Shaylee Magallanes NP) Father Cancer Social History Social History Alcohol intake: current Alcohol intake frequency: 3 or more drinks per day Alcohol type: beer, wine and hard liquor Comment: Twelve white claws a day Patient Tobacco Use Status: Current everyday Tobacco user Cigarette Packs Per Day: 1 Smoked in Last 30 Days: Yes Use of substances other than those prescribed or required for medical reasons: No Substance Use Type: Marijuana Advance Directives: No Advance Directives Information Provided: Yes Physical Exam 2 Vital Signs: Vital Signs: Last Vital Signs Temp 97.8 F 10/08/25 12:05 Pulse 95 10/08/25 13:49 Resp 18 10/08/25 13:49 BP 109/74 10/08/25 13:49 Pulse Ox 95 10/08/25 13:49 O2 Del Method Room Air 10/08/25 13:49 BMI result Body Mass Index 23.4 Appearance: Alert. Oriented X3. Moderate acute distress. During the blood pressure testing of the left arm he started to have carpal pedal spasm consistent with Trousseau sign Eyes: Pupils equal, round and reactive to light. Atraumatic ENT: Pharynx dry, tongue fasciculations Neck: Normal inspection. Neck supple. CVS: Tachycardic heart rate and rhythm. Pulses normal. Respiratory: Mild respiratory distress tachypnea. Breath very coarse with crackles in left lower lobe Abdomen: Soft and nontender. Skin: Skin warm and dry. Pale skin color. Normal skin turgor. Extremities: No lower extremity edema. Neuro: Oriented X 3. No motor deficit. No sensory deficit. CN2-12 intact Course Course Course Narrative: 12:53 PM 10/08/2025 (CHAU GARLAND): Patient appears more comfortable, he was ordered a total of 2500 cc/kilos bolus. His lactic acid is high but his vital signs have improved. I am going to recheck his lactic acidosis and if improved will admit to the hospitalist after trauma imaging is clear. Reevaluation(s) Reevaluation #1: 2:16 PM 10/08/2025 (CHAU GARLAND): Focused exam for sepsis performed 2:27 PM 10/08/2025 (CHAU GARLAND): He is still very tremulous even after Valium and I am phenobarb I am going to dose him with IV phenobarb. I am going to ask discuss this with the ICU given the increase phenobarb doses as well as electrolyte abnormalities he may require higher level of care and repeat labs 2:34 PM 10/08/2025 (CHAU GARLAND): Dr. Reyes will admit given his lab derangement and my concern for escalating doses given withdrawal he will require closer observation in ICU setting Medications Administered Generic Name Dose Route Start Last Admin Trade Name Freq PRN Reason Stop Dose Admin Potassium Chloride 10 meq in 100 mls @ 100 mls/hr 10/08/25 12:30 10/08/25 12:44 Potassium Chloride/H20 IV 10/08/25 16:29 100 mls/hr Q1H JUN Administration Lactated Ringer's 500 mls @ 50 mls/hr 10/08/25 12:30 10/08/25 13:33 Lr IV 10/08/25 22:29 Infused .Q10H JUN Infusion Phenobarbital Sodium 282 mg 10/08/25 14:00 10/08/25 13:43 Phenobarbital Sodium 130 Mg/Ml Vial Im Q3hx2 IM 10/08/25 17:01 282 mg Q3H JUN Administration Protocol Discontinued Medications Generic Name Dose Route Start Last Admin Trade Name Freq PRN Reason Stop Dose Admin Diazepam 5 mg 10/08/25 10:44 10/08/25 11:16 Diazepam 10 Mg/2 Ml Cartridge IVPUSH 10/08/25 10:45 5 mg STAT STA Administration Lactated Ringer's 1,000 mls @ 999 mls/hr 10/08/25 10:42 10/08/25 12:20 Lr IV 10/08/25 11:42 Infused .Q1H1M ONE Infusion Magnesium Sulfate 2 gm in 50 mls @ 25 mls/hr 10/08/25 10:42 10/08/25 12:45 Magnesium Sulfate/H2o IV 10/08/25 12:41 Infused ONCE ONE Infusion Calcium Gluconate 2 gm in 100 mls @ 50 mls/hr 10/08/25 10:42 10/08/25 13:23 Calcium Gluconate IV 10/08/25 12:41 Infused ONCE ONE Infusion Piperacillin Sod/Tazobactam 50 mls @ 100 mls/hr 10/08/25 10:42 10/08/25 11:47 Sod 3.375 gm/ Sodium Chloride IV 10/08/25 11:11 Infused ONCE ONE Infusion Thiamine HCl 200 mg/ Sodium 102 mls @ 204 mls/hr 10/08/25 10:44 10/08/25 12:20 Chloride IV 10/08/25 11:13 Infused ONCE ONE Infusion Lactated Ringer's 1,000 mls @ 999 mls/hr 10/08/25 10:49 10/08/25 12:21 Lr IV 10/08/25 11:49 Infused .Q1H1M ONE Infusion Phenobarbital Sodium 376 mg 10/08/25 11:00 10/08/25 11:22 Phenobarbital Sodium 130 Mg/Ml Im Once IM 10/08/25 11:01 376 mg ONCE ONE Administration Protocol Potassium Chloride 40 meq 10/08/25 12:27 10/08/25 12:44 Potassium Chloride Er 20 Meq Tab.Er.Prt PO 10/08/25 12:28 40 meq ONCE ONE Administration Medical Decision Making Medical Decision Making [facility] Narrative: 50-year-old male with past medical history of alcohol use disorder who drinks heavily but has no history of seizure withdrawal, he reports recurrent falls over the last 2 months, cough, chills, shortness of breath on exam I have concern for pneumonia. He is also an active withdrawal. He will need to be started on IV Valium IV thiamine as well as phenobarb. He has a history of electrolyte abnormalities, he has Trousseau sign on exam I am going I will start on IV calcium, IV magnesium, I anticipate he is going to need potassium supplementation as well. He will get CT scan of the head and neck as well given recurrent falls. He will be started on empiric Zosyn for concern of potential aspiration pneumonia. He will be started on IV fluid resuscitation IV 2 L of LR. Anticipate admission Differential Diagnosis Differential Diagnoses: The differential diagnosis associated with the presentation includes Aspiration pneumonia, alcohol withdrawal, JOANNE, anemia, electrolyte abnormality, alcoholic ketoacidosis Admission/Observation Consideration of admission/observation: Escalation of care including admission/observation considered Given clinical presentation and concerns needs admission to the hospital Consult Healthcare Provider Management of the patient was discussed with: Hospitalist (Will admit) Lab Data MDM Lab Attestation statement: I reviewed the patient's lab results. 10/08/25 10:54 10/08/25 10:54 Labs: Lab Results 10/08/25 10/08/25 10/08/25 Range/Units 10:54 11:24 12:05 WBC 17.0 H (4.8-10.8) X10*3/uL RBC 2.55 L (4.60-5.80) X10*6/uL Hgb 9.5 L (14.0-18.0) g/dl Hct 27.0 L (42.0-52.0) % MCV 105.9 H (80.0-98.0) fL MCH 37.3 H (27.0-33.0) pg MCHC 35.2 (31.0-36.0) g/dl RDW 17.9 H (11.0-16.0) % Plt Count 365 (160-400) X10*3/uL MPV 9.8 (9.4-12.4) fL Immature Gran % (Auto) 0.6 H (0.0-0.4) % Neut % (Auto) 87.6 H (45-73) % Lymph % (Auto) 6.5 L (20-40) % Wheeler % (Auto) 5.3 (2-11) % Eos % (Auto) 0.0 (0-4) % Baso % (Auto) 0.0 (0-2) % Lymph # (Auto) 0.2 L (1.2-4.9) X10*3/uL [place] # (Auto) 0.2 (0.1-1.2) X10*3/uL Eos # (Auto) 0.0 (0.0-0.4) X10*3/uL Baso # (Auto) 0.0 (0.0-0.2) X10*3/uL Abs Immat Gran (auto) 0.02 (0.00-0.03) X10*3/uL Absolute Neuts (auto) 3.0 (2.0-8.3) x10*3/uL Absolute Nucleated RBC 0.000 (0.0-0.012) X10*3/uL Nucleated RBC % (auto) 0.0 (0.0-0.2) /100WBC PT 18.0 H (11.2-13.5) SEC INR 1.5 H (0.9-1.1) VBG pH 7.64 H* (7.32-7.43) VBG pCO2 41 mmHg VBG pO2 47 mmHg VBG HCO3 45 H (22-26) mmol/L VBG O2 Saturation 73.0 % VBG Base Excess 22.0 mmol/L Sodium 134 L (135-145) mmol/L Potassium 2.2 L* (3.3-5.1) mmol/L Chloride 73 L (96-108) mmol/L Carbon Dioxide 38 H (22-29) mmol/L Anion Gap 25 H (12-20) BUN 11 (9-16) mg/dL Creatinine 0.80 (0.5-1.4) mg/dL Estim Creat Clear Calc 121.2 Estimated GFR > 60 Random Glucose 108 (60-115) mg/dL Lactic Acid 9.9 H* (0.5-2.0) mmol/L Lactic Acid F/U @ 2Hr (0.5-2.0) mmol/L Calcium 5.8 L* D (8.4-10.2) mg/dL Magnesium 0.7 L* (1.6-2.6) mg/dL Total Bilirubin 1.3 H (0.0-1.0) mg/dL Direct Bilirubin 0.5 (0.0-0.5) mg/dL AST 72 H (5-37) U/L ALT 9 (0-40) U/L Alkaline Phosphatase 109 (39-117) U/L Ammonia Cancelled Total Creatine Kinase 304 H (38-174) U/L Troponin I High Sens 13.8 (<3.5-35.0) ng/L C-Reactive Protein 9.03 H (< or = 0.50) mg/dL Total Protein 6.4 L (6.5-8.0) g/dL Albumin 3.3 L (3.5-5.0) g/dL Lipase 17 (8-78) U/L Procalcitonin 0.12 ng/mL TSH 4.30 H (0.32-4.0) uIU/mL Free T4 0.99 (0.71-1.85) ng/dL Urine Color Urine Appearance Urine pH (5.0-9.0) Ur Specific [place] (1.005-1.025) Urine Protein (Neg-Trace) mg/dL Urine Glucose (UA) (Negative) mg/dL Urine Ketones (Negative) mg/dL Urine Blood (Negative) Urine Nitrite (Negative) Ur Leukocyte Esterase (Negative) Urine Opiates Screen (Not Detect) Ur Buprenorphine Scrn (Not Detect) ng/mL Ur Oxycodone Screen (Not Detect) ng/mL Urine Methadone Screen (Not Detect) ng/mL Urine Fentanyl Screen (Not Detect) Ur Barbiturates Screen (Not Detect) Ur Phencyclidine Scrn (Not Detect) Ur Amphetamines Screen (Not Detect) U Benzodiazepines Scrn (Not Detect) Urine Cocaine Screen (Not Detect) U Marijuana (THC) Screen (Not Detect) Ethyl Alcohol 16 mg/dL Influenza Type A (PCR) NEGATIVE (Negative) Influenza Type B (PCR) NEGATIVE (Negative) RSV RNA Qual (PCR) NEGATIVE (Negative) SARS-CoV-2 RNA (RT-PCR) NEGATIVE (Negative) 10/08/25 10/08/25 Range/Units 12:50 13:35 WBC (4.8-10.8) X10*3/uL RBC (4.60-5.80) X10*6/uL Hgb (14.0-18.0) g/dl Hct (42.0-52.0) % MCV (80.0-98.0) fL MCH (27.0-33.0) pg MCHC (31.0-36.0) g/dl RDW (11.0-16.0) % Plt Count (160-400) X10*3/uL MPV (9.4-12.4) fL Immature Gran % (Auto) (0.0-0.4) % Neut % (Auto) (45-73) % Lymph % (Auto) (20-40) % Wheeler % (Auto) (2-11) % Eos % (Auto) (0-4) % Baso % (Auto) (0-2) % Lymph # (Auto) (1.2-4.9) X10*3/uL Wheeler # (Auto) (0.1-1.2) X10*3/uL Eos # (Auto) (0.0-0.4) X10*3/uL Baso # (Auto) (0.0-0.2) X10*3/uL Abs Immat Gran (auto) (0.00-0.03) X10*3/uL Absolute Neuts (auto) (2.0-8.3) x10*3/uL Absolute Nucleated RBC (0.0-0.012) X10*3/uL Nucleated RBC % (auto) (0.0-0.2) /100WBC PT (11.2-13.5) SEC INR (0.9-1.1) VBG pH (7.32-7.43) VBG pCO2 mmHg VBG pO2 mmHg VBG HCO3 (22-26) mmol/L VBG O2 Saturation % VBG Base Excess mmol/L Sodium (135-145) mmol/L Potassium (3.3-5.1) mmol/L Chloride (96-108) mmol/L Carbon Dioxide (22-29) mmol/L Anion Gap (12-20) BUN (9-16) mg/dL Creatinine (0.5-1.4) mg/dL Estim Creat Clear Calc Estimated GFR Random Glucose (60-115) mg/dL Lactic Acid (0.5-2.0) mmol/L Lactic Acid F/U @ 2Hr 6.5 H* (0.5-2.0) mmol/L Calcium (8.4-10.2) mg/dL Magnesium (1.6-2.6) mg/dL Total Bilirubin (0.0-1.0) mg/dL Direct Bilirubin (0.0-0.5) mg/dL AST (5-37) U/L ALT (0-40) U/L Alkaline Phosphatase (39-117) U/L Ammonia Total Creatine Kinase (38-174) U/L Troponin I High Sens (<3.5-35.0) ng/L C-Reactive Protein (< or = 0.50) mg/dL Total Protein (6.5-8.0) g/dL Albumin (3.5-5.0) g/dL Lipase (8-78) U/L Procalcitonin ng/mL TSH (0.32-4.0) uIU/mL Free T4 (0.71-1.85) ng/dL Urine Color Yellow Urine Appearance Clear Urine pH 6.5 (5.0-9.0) Ur Specific [place] 1.010 (1.005-1.025) Urine Protein Trace (Neg-Trace) mg/dL Urine Glucose (UA) Negative (Negative) mg/dL Urine Ketones Negative (Negative) mg/dL Urine Blood Negative (Negative) Urine Nitrite Negative (Negative) Ur Leukocyte Esterase Negative (Negative) Urine Opiates Screen Not Detected (Not Detect) Ur Buprenorphine Scrn Not Detected (Not Detect) ng/mL Ur Oxycodone Screen Not Detected (Not Detect) ng/mL Urine Methadone Screen Not Detected (Not Detect) ng/mL Urine Fentanyl Screen Not Detected (Not Detect) Ur Barbiturates Screen POSITIVE H (Not Detect) Ur Phencyclidine Scrn Not Detected (Not Detect) Ur Amphetamines Screen Not Detected (Not Detect) U Benzodiazepines Scrn Not Detected (Not Detect) Urine Cocaine Screen Not Detected (Not Detect) U Marijuana (THC) Screen POSITIVE H (Not Detect) Ethyl Alcohol mg/dL Influenza Type A (PCR) (Negative) Influenza Type B (PCR) (Negative) RSV RNA Qual (PCR) (Negative) SARS-CoV-2 RNA (RT-PCR) (Negative) Independent Interpretation I performed an independent interpretation of an: EKG, Plain X-Ray (No obvious focal consolidation) and CT Scan (No trauma noted) Interpretation: Rate: 108 Rhythm: Sinus tachycardia [place]: Normal Normal P waves. Normal JONI. Normal QRS complex. ST T wave : No ST-elevation but has nonspecific STT wave abnormalities with some depression in the anterior leads I suspect this is due to an electrolyte abnormality qTC: 404 prior studies: No STEMI The study has been interpreted contemporaneously by me. . Radiology Impression Discussion of test interpretation with radiology: I have reviewed the radiologist's reading. Independent Historian Clinical information obtained from an independent historian. History obtained from or confirmed by: EMS External Record Review External record reviewed: Inpatient record, Outpatient record and Prior outpatient labs Social Determinants Patient?s care significantly limited by Social Determinants of Health including: Problems related to primary support group Critical Care Time Critical Care Time Critical Care Time: Yes Total Critical Care Time: 90 Attestation: Time is exclusive of separately billable procedures. Time includes: direct patient care, patient reassessment, coordination of patient care, interpretation of data (laboratory data, pulse oximetry, arterial blood gases and chest xrays), review of patient's medical records, medical consultation and documentation of patient care. Repeat IV magnesium to prevent life-threatening arrhythmia, IV calcium to prevent life-threatening arrhythmia, IV potassium to prevent any life-threatening arrhythmia. Procedures excluded from critical care time: electrocardiography. I attest to this time spent taking care of the patient Discharge Plan Discharge Clinical Impression: Hypocalcemia, Hypomagnesemia, Hypokalemia, Acidosis, lactic Alcohol withdrawal Qualifiers: Complication of substance-induced condition: with unspecified complication Q ualified Code(s): F10.939 - Alcohol use, unspecified with withdrawal, unspecified Elevated WBC count Qualifiers: Leukocytosis type: unspecified Qualified Code(s): D72.829 - Elevated white blood cell count, unspecified Patient Disposition: Admitted As Inpatient Print Language: Upper Sorbian
--- NOTE | 2025-10-08 10:42 | ECG_ITS ---
Test Reason : SOB Blood Pressure : */* mmHG Vent. Rate : 108 BPM Atrial Rate : 108 BPM P-R Int : 126 ms QRS Dur : 98 ms QT Int : 302 ms P-R-T Axes : -17 7 103 degrees QTcB Int : 404 ms Sinus tachycardia Premature ventricular complexes Nonspecific ST and T wave abnormality Abnormal ECG When compared with ECG of 31-Aug-2025 07:11, Nonspecific ST and T wave abnormality anterolateral leads Referred By: Amber Gordon Electronically Signed By: ERNIE GARAY
[2025-10-08] MEDS: Calcium Gluconate/NaCl,Iso-Osm 2 GM/100 ML PLAST..BAG IV ×2 (11:15→16:22)
[2025-10-08] MEDS: Magnesium Sulfate/H2O 2 GM/50 ML PIGGYBACK IV ×2 (11:15→14:46)
[2025-10-08] MEDS: diazePAM 10 MG/2 ML CARTRIDGE 5 MG IVPUSH (11:16)
[2025-10-08] MEDS: Lactated Ringers 1,000 ML 999 ML IV ×2 (11:17)
[2025-10-08] MEDS: Thiamine HCL 200 MG in 0.9 % Sodium Chloride 100 ML 204 MG IV (11:19)
[2025-10-08] MEDS: PHENobarbitaL sodium 130 MG/ML IM ONCE 376 MG IM (11:22)
[2025-10-08 11:30] LABS: MANUAL DIFF FLAG NO
--- NOTE | 2025-10-08 11:39 | PC.NURSE ---
Pt presents to ED via EMS from home, reporting 2 months of generalized weakness, inability to ambulate and cough/ pneumonia. was hospitalized here approx 1 month ago and left AMA. Daily drinker, 12 pack of high noons and 2 pints daily, last drink yesterday around 4pm. No hx of withdrawal seizures. Has had issues with electrolyte imbalances in past. Also reporting multiple falls over last month due to ambulation issues. Lives alone, noted to be unkept. Alert and oriented, breathing even, productive cough noted. Pain 10/10 generalized body. Swelling noted to face.
[2025-10-08 11:40] LABS: VBG HCO3 45 mmol/L (22-26); VBG O2 % Saturation 73.0 %
[2025-10-08 11:42] LABS: INTERNATIONAL NORM RATIO 1.5 (0.9-1.1); Prothrombin Time 18.0 SEC (11.2-13.5)
[2025-10-08 11:44] LABS: Venous Blood Gas Refer to POC result
[2025-10-08 12:04] LABS: Troponin-I High Sensitivity 13.8 ng/L (<3.5-35.0)
[2025-10-08 12:18] LABS: Resp Syncy Virus RNA Qual PCR NEGATIVE (Negative); SARS COV2 PCR INHOUSE NEGATIVE (Negative)
[2025-10-08 12:22] LABS: Imm Gran Abs Auto 0.02 X10*3/uL (0.00-0.03); Imm Gran Pct Auto 0.6 % (0.0-0.4); Lymphocytes Absolute Auto 0.2 X10*3/uL (1.2-4.9); Mean Corpuscular HGB Conc 35.2 g/dl (31.0-36.0); Mean Corpuscular Hemoglobin 37.3 pg (27.0-33.0); Mean Corpuscular Volume 105.9 fL (80.0-98.0); NRBC Abs Auto 0.000 X10*3/uL (0.0-0.012); NRBC Pct Auto 0.0 /100WBC (0.0-0.2)
[2025-10-08 12:23] LABS: Hematocrit 27.0 % (42.0-52.0); Hemoglobin 9.5 g/dl (14.0-18.0); Red Blood Count 2.55 X10*6/uL (4.60-5.80); White Blood Count 17.0 X10*3/uL (4.8-10.8)
[2025-10-08 12:24] LABS: Platelet Count 365 X10*3/uL (160-400)
[2025-10-08 12:25] LABS: Alanine Aminotransferase 9 U/L (0-40); Albumin Level 3.3 g/dL (3.5-5.0); Alkaline Phosphatase 109 U/L (39-117); Anion Gap 25 (12-20); Aspartate Amino Transferase 72 U/L (5-37); Blood Urea Nitrogen 11 mg/dL (9-16); Calcium 5.8 mg/dL (8.4-10.2); Carbon Dioxide 38 mmol/L (22-29); Chloride 73 mmol/L (96-108); Creatinine Clr Calc Pharmacy 121.2; Estimated Glomerular Filt Rate > 60; Lipase 17 U/L (8-78); Magnesium 0.7 mg/dL (1.6-2.6); Potassium 2.2 mmol/L (3.3-5.1); Sodium 134 mmol/L (135-145); Total Protein 6.4 g/dL (6.5-8.0)
--- OUTSIDE RECORDS SUMMARY | 2025-10-08 12:25 | XMS_ITS | Patient Health Record ---
Author Organization [facility] Address [address] [place] [id number] Care Team Providers Care Information Security Architect Name Role Phone Ladarius Flores M.D. Primary Care Provider Anahy hungdonato Barry Portillo Unavailable [phone] Reason For Referral No Information Medications Medication SIG (Take, Route, Frequency, Duration) Notes Start Date End Date Status Omeprazole 20mg Tablet Delayed Release 2 capsules Orally Once a day; Duration: 30 days Active PriLOSEC OTC 20 mg tablet TAKE 2 TABLET BY MOUTH IN THE MORNING; Duration: 30 Active Social History Social History Additional Details Category Social Info Options Details Miscellaneous: Marital status: single Occupation: welder/fabricator Section Notes: Smoker; approx. 2 beers QD Problems Problem Type SNOMED Code ICD Code Onset Dates Problem Status W/U Status Risk Notes Problem Barretts esophagus (395378842) Barretts esophagus (530.85) Active confirmed Problem Gastroesophageal reflux disease (190567215) GERD (gastroesopha geal reflux disease) (530.81) Active confirmed Plan Of Treatment Future Test Test Name Order Date UPPER GI ENDOSCOPY 04/17/2012 Insurance Providers Payer Name Payer Address Payer Phone Subscriber Number Group Number Insured Name Patient Relationship to Insured Coverage Start Date Coverage End Date [id number] [address] [address] [place], [place] [id number] AMANDAJORGE ALBERTO Self - patient is the insured [facility] [address] [place] [address] [phone] [id number] AMANDAJORGE ALBERTO [place] Self - patient is the insured Medical (General) History Medical History History ICD Code egd 08-27-2006 and 08/26 esophageal reflux vargas's esophagus asthma Denies [place],DM,CVA,renal disease Surgical History Surgery Date(Month/Year) hernia surgery
[2025-10-08] MEDS: Potassium Chloride/H20 10 MEQ/100 ML PIGGYBACK 100 MEQ IV ×4 (12:44→17:20)
[2025-10-08] MEDS: Potassium Chloride ER 20 MEQ TAB.ER.PRT 40 MEQ PO (12:44)
[2025-10-08] MEDS: Lactated Ringers 500 ML 50 ML IV (12:45)
--- NOTE | 2025-10-08 12:51 | PC.NURSE ---
Per Dr Gordon, 500 cc LR to be run as bolus, not as ordered, fluids currently running.
[2025-10-08 12:59] LABS: Appearance Urine Clear; Glucose Urine UA Negative (Negative); PH 6.5 (5.0-9.0); Specific Gravity - Urine 1.010 (1.005-1.025)
[2025-10-08 13:02] LABS: Free T4 (Free Thyroxine) 0.99 ng/dL (0.71-1.85); Procalcitonin 0.12 ng/mL
[2025-10-08 13:10] LABS: Cannabinoid Screen Urine POSITIVE (Not Detect)
[2025-10-08 13:19] LABS: Reflex Lactate? Lactic Acid Added
[2025-10-08] MEDS: PHENobarbitaL sodium 130 MG/ML VIAL IM Q3Hx2 282 MG IM ×2 (13:43→16:27)
--- NOTE | 2025-10-08 13:48 | PC.NURSE ---
IV K slowed d/t patient intolerance.
[2025-10-08 13:59] LABS: ~Lactic Acid-LAB USE ONLY 6.5 mmol/L (0.5-2.0)
--- NOTE | 2025-10-08 14:41 | P.HPCC_ITS ---
History of Present Illness Date of Service: 10/08/25 Attending physician on admission: Tayler Reyes Chief Complaint: Alcohol Withdrawal Patient is a 50 Y M w/ alcohol misuse w/ recent admission for alcohol withdrawal, though left against medical advice, reported last alcohol 10/07, presenting to ED on 10/08 w/ 2-months of recurrent falls; ED trauma work-up reassuring; otherwise, ED work-up demonstrating electrolyte derangements; patient admitted ICU for closer monitoring of electrolytes and c/f worsening alcohol withdrawal Review of Systems 2 Review of Systems: Yes all other systems are reviewed and are negative FORMERLY [facility], [facility]1983 Past Medical History Medical History COPD (chronic obstructive pulmonary disease) Family History Family History (Updated 08/31/25 @ 11:21 by Shaylee Magallanes NP) Father Cancer Surgical History Surgical History H/O hernia repair Social History Social History Alcohol intake: current Alcohol intake frequency: 3 or more drinks per day Alcohol type: beer, wine and hard liquor Comment: Twelve white claws a day Patient Tobacco Use Status: Current everyday Tobacco user Cigarette Packs Per Day: 1 Smoked in Last 30 Days: Yes Use of substances other than those prescribed or required for medical reasons: No Substance Use Type: Marijuana Advance Directives: No Advance Directives Information Provided: Yes Nutrition Risks: Poor intake 0-25% >4 days Meds Allergies Allergy/AdvReac Type Severity Reaction Status Date / Time No Known Allergies Allergy Verified 10/08/25 10:43 Active Medications: Current Medications Potassium Chloride (Potassium Chloride/H20) 10 meq in 100 mls @ 100 mls/hr IV Q1H JUN Stop: 10/08/25 16:29 Last Admin: 10/08/25 12:44 Dose: 100 mls/hr Lactated Ringer's (Lr) 500 mls @ 50 mls/hr IV .Q10H JUN Stop: 10/08/25 22:29 Last Infusion: 10/08/25 13:33 Dose: Infused Magnesium Sulfate (Magnesium Sulfate/H2o) 2 gm in 50 mls @ 25 mls/hr IV ONCE ONE Stop: 10/08/25 16:01 Piperacillin Sod/Tazobactam (Sod 3.375 gm/ Sodium Chloride) 50 mls @ 100 mls/hr IV Q8H JUN Potassium Phosphate (Kphos) 15 mmol in 250 mls @ 62.5 mls/hr IV Q4H JUN Stop: 10/08/25 22:44 Albumin Human (Kedbumin 25 %) 100 mls @ 133.333 mls/hr IV Q1H JUN Stop: 10/08/25 16:29 Pharmacy Consult (Consult Rx Etoh Phenob Im/Po) 1 each MISCELLANE ONCE PRN; Protocol PRN Reason: Consult order Phenobarbital (Phenobarbital 30 Mg Tablet) 60 mg PO BID JUN; Protocol Stop: 10/10/25 09:01 Phenobarbital (Phenobarbital 30 Mg Tablet) 30 mg PO BID JUN; Protocol Stop: 10/12/25 09:01 Phenobarbital (Phenobarbital 30 Mg Tablet) 30 mg PO DAILY JUN; Protocol Stop: 10/14/25 09:01 Phenobarbital Sodium (Phenobarbital Sodium 130 Mg/Ml Vial Im Q3hx2) 282 mg IM Q3H JUN; Protocol Stop: 10/08/25 17:01 Last Admin: 10/08/25 13:43 Dose: 282 mg Home Medications ?Medication ?Instructions ?Recorded ?Confirmed ?Last Taken ?Type omeprazole 20 mg capsule,delayed 20 mg PO BID@0630,163 0 09/26/21 10/08/25 10/08/25 History release epinephrine 0.125 mg/actuation 1 puff inhalation Q4H P RN 08/31/25 10/08/25 1 Week Ago History aerosol inhaler (Primatene Mist) Shortness Of Breath O r Wheezing ~10/01/25 Physical Exam 2 Vital Signs: Vital Signs: Last Vital Signs Temp 97.8 F 10/08/25 12:05 Pulse 95 10/08/25 13:49 Resp 18 10/08/25 13:49 BP 109/74 10/08/25 13:49 Pulse Ox 95 10/08/25 13:49 O2 Del Method Room Air 10/08/25 13:49 BMI result Body Mass Index 23.4 Const: General: cooperative, healthy appearing, comfortable, no acute distress, well developed, alert, awake and Physically active O rientation/consciousness: patient oriented x3 HEENT: Head: Yes normal to inspection, Yes normocephalic and Yes atraumatic Eyes: General: appearance normal, both eyes and all related structures Neck: Neck: Yes normal visual inspection, Yes full ROM, Yes no meningeal signs, Yes trachea midline and Yes supple Chest: Chest palpation & inspection: normal inspection of the chest Resp: Other: no appreciable overt rales, rhonchi, wheezing Effort & Inspection: normal respiratory effort Cardio: Rate: regular rate Rhythm: regular rhythm GI: Inspection: Yes normal to inspection, No Abdominal wall edema and No distended Palpation (GI): Soft to palpation, not firm, nontender, no guarding and not rigid Skin: General skin exam: no rashes or lesions noted Neuro: General: patient oriented x3, tone normal, moves all extremities, no meningeal signs and no focal motor deficits Extrem: General: Yes normal to inspection, Yes full ROM, Yes capillary refill normal and Yes no clubbing, cyanosis or edema Psych: Appearance: grossly normal Results Labs 10/08/25 10:54 10/08/25 15:01 Labs: Laboratory Results - last 24 hr 10/08/25 10/08/25 10/08/25 10:54 11:24 12:05 MCV 105.9 H MCH 37.3 H MCHC 35.2 RDW 17.9 H Plt Count 365 MPV 9.8 Immature Gran % (Auto) 0.6 H Neut % (Auto) 87.6 H Lymph % (Auto) 6.5 L Larue % (Auto) 5.3 Eos % (Auto) 0.0 Baso % (Auto) 0.0 Lymph # (Auto) 0.2 L Larue # (Auto) 0.2 Eos # (Auto) 0.0 Baso # (Auto) 0.0 Abs Immat Gran (auto) 0.02 Absolute Neuts (auto) 3.0 Absolute Nucleated RBC 0.000 Nucleated RBC % (auto) 0.0 PT 18.0 H INR 1.5 H VBG pH 7.64 H* VBG pCO2 41 VBG pO2 47 VBG HCO3 45 H VBG O2 Saturation 73.0 VBG Base Excess 22.0 Anion Gap 25 H Estim Creat Clear Calc 121.2 Estimated GFR > 60 Random Glucose 108 Lactic Acid 9.9 H* Lactic Acid F/U @ 2Hr Calcium 5.8 L* D Magnesium 0.7 L* Total Bilirubin 1.3 H Direct Bilirubin 0.5 AST 72 H ALT 9 Alkaline Phosphatase 109 Ammonia Cancelled Total Creatine Kinase 304 H Troponin I High Sens 13.8 C-Reactive Protein 9.03 H Total Protein 6.4 L Albumin 3.3 L Lipase 17 Procalcitonin 0.12 TSH 4.30 H Free T4 0.99 Urine Color Urine Appearance Urine pH Ur Specific [place] Urine Protein Urine Glucose (UA) Urine Ketones Urine Blood Urine Nitrite Ur Leukocyte Esterase Urine Opiates Screen Ur Buprenorphine Scrn Ur Oxycodone Screen Urine Methadone Screen Urine Fentanyl Screen Ur Barbiturates Screen Ur Phencyclidine Scrn Ur Amphetamines Screen U Benzodiazepines Scrn Urine Cocaine Screen U Marijuana (THC) Screen Ethyl Alcohol 16 Influenza Type A (PCR) NEGATIVE Influenza Type B (PCR) NEGATIVE RSV RNA Qual (PCR) NEGATIVE SARS-CoV-2 RNA (RT-PCR) NEGATIVE 10/08/25 10/08/25 12:50 13:35 MCV MCH MCHC RDW Plt Count MPV Immature Gran % (Auto) Neut % (Auto) Lymph % (Auto) Larue % (Auto) Eos % (Auto) Baso % (Auto) Lymph # (Auto) Larue # (Auto) Eos # (Auto) Baso # (Auto) Abs Immat Gran (auto) Absolute Neuts (auto) Absolute Nucleated RBC Nucleated RBC % (auto) PT INR VBG pH VBG pCO2 VBG pO2 VBG HCO3 VBG O2 Saturation VBG Base Excess Anion Gap Estim Creat Clear Calc Estimated GFR Random Glucose Lactic Acid Lactic Acid F/U @ 2Hr 6.5 H* Calcium Magnesium Total Bilirubin Direct Bilirubin AST ALT Alkaline Phosphatase Ammonia Total Creatine Kinase Troponin I High Sens C-Reactive Protein Total Protein Albumin Lipase Procalcitonin TSH Free T4 Urine Color Yellow Urine Appearance Clear Urine pH 6.5 Ur Specific [place] 1.010 Urine Protein Trace Urine Glucose (UA) Negative Urine Ketones Negative Urine Blood Negative Urine Nitrite Negative Ur Leukocyte Esterase Negative Urine Opiates Screen Not Detected Ur Buprenorphine Scrn Not Detected Ur Oxycodone Screen Not Detected Urine Methadone Screen Not Detected Urine Fentanyl Screen Not Detected Ur Barbiturates Screen POSITIVE H Ur Phencyclidine Scrn Not Detected Ur Amphetamines Screen Not Detected U Benzodiazepines Scrn Not Detected Urine Cocaine Screen Not Detected U Marijuana (THC) Screen POSITIVE H Ethyl Alcohol Influenza Type A (PCR) Influenza Type B (PCR) RSV RNA Qual (PCR) SARS-CoV-2 RNA (RT-PCR) Imaging Radiologist's Impressions: Impressions Chest X-Ray 10/08/25 11:41 IMPRESSION: No evidence of pneumonia. Electronically signed by: Jayne Lafleur MD 10/08/2025 12:21 PM EST RP Cervical Spine CT 10/08/25 13:23 IMPRESSION: No CT evidence of acute cervical spine fracture or traumatic malalignment. Mild anterior subluxation of bilateral mandibular heads at the temporomandibular joints. Additional findings and details as above. Fleischner guidelines were followed. Electronically signed by: West Maya MD 10/08/2025 01:56 PM EST RP Head CT 10/08/25 13:23 IMPRESSION: No acute fracture, bony calvarium. No acute intracranial hemorrhage. Small vessel occlusive disease, mild. Global cerebral atrophy. Electronically signed by: Jesus Rodriges MD 10/08/2025 01:53 PM EST RP Assessment and Plan (1) Alcohol withdrawal: Qualifiers: Complication of substance-induced condition: with unspecified complication Qualified Code(s): F10.939 - Alcohol use, unspecified with withdrawal, unspecified Status: Acute (2) Electrolyte abnormality: Status: Acute Plan Patient is a 50 Y M w/ alcohol misuse w/ recent admission for alcohol withdrawal, though left against medical advice, reported last alcohol 10/07, presenting to ED on 10/08 w/ 2-months of recurrent falls; ED trauma work-up reassuring; otherwise, ED work-up demonstrating electrolyte derangements; patient admitted ICU for closer monitoring of electrolytes and c/f worsening alcohol withdrawal N: recurrent falls, likely multi-factorial possibly d/t intoxication/withdrawal, electrolyte derangements, to closely monitor CV: no acute issues; to closely monitor hemodynamics R: subjective dyspnea, though w/o hypoxia nor overt respiratory distress/failure; empiric treatment of pneumonia; to closely monitor GI: no acute issues : multiple electrolyte derangements, replete and closely monitor H: no acute issues; chemical DVT prophylaxis ID: empiric treatment of pneumonia w/ zosyn; to follow-up BCx 10/08 E: TSH/T4 within normal limits; to follow-up random cortisol; to monitor hypo-/hyper-glycemia P: alcohol misuse, addiction medicine
[2025-10-08] MEDS: Albumin Human 25 % 100 ML 133.33 ML IV ×2 (14:46→15:57)
--- NOTE | 2025-10-08 15:22 | PC.NURSE ---
RN to RN phone report given to Alexandre, all questions answered, patient to be transferred to ICU when transport is available. Dolores masonat RN to facilitate bringing patient to unit.
--- NOTE | 2025-10-08 15:28 | PHA.MEDREC ---
Addendum entered by Clifford Duncan RPh 10/08/25 15:34: MED REC REVIEWED BY [facility] Original Note: Pharmacy Consult ? Medication Reconciliation Pharmacy has completed the medication reconciliation. Pt only taking Primatene Mist (pt ran out of that ~1 weeks ago) and Omeprazole 20mg BID (Pt gets OTC) and nothing else at this time.
[2025-10-08 15:41] LABS: Reflex Lactate? 2 Y
[2025-10-08 15:42] LABS: Anion Gap 17 (12-20); Blood Urea Nitrogen 9 mg/dL (9-16); Calcium 6.0 mg/dL (8.4-10.2); Carbon Dioxide 39 mmol/L (22-29); Chloride 81 mmol/L (96-108); Creatinine Clr Calc Pharmacy 161.6; Estimated Glomerular Filt Rate > 60; Magnesium 1.2 mg/dL (1.6-2.6); Potassium 2.1 mmol/L (3.3-5.1); Sodium 135 mmol/L (135-145)
[2025-10-08] MEDS: Potassium Phosphate/NS 15 MMOL/250 ML PLAST..BAG 62.5 MMOL IV ×2 (15:55→20:20)
[2025-10-08 17:47] LABS: ~Lactic Acid-LAB USE ONLY 3.9 mmol/L (0.5-2.0)
[2025-10-08] MEDS: Albuterol Sulfate 90 MCG 8 GM INHALER 1 PUFF INHALE ×2 (18:08→23:21)
[2025-10-08] MEDS: Nicotine 21 MG PATCH.TD24 TRANSDERMA (19:53)
--- NOTE | 2025-10-08 23:02 | ECG_ITS ---
Test Reason : cp Blood Pressure : */* mmHG Vent. Rate : 94 BPM Atrial Rate : 94 BPM P-R Int : 156 ms QRS Dur : 100 ms QT Int : 442 ms P-R-T Axes : 0 13 31 degrees QTcB Int : 552 ms Sinus rhythm with occasional Premature ventricular complexes Prolonged QT Abnormal ECG When compared with ECG of 08-Oct-2025 10:48, Premature ventricular complexes are now Present QT has lengthened Referred By: Miguel Angel Quezada Electronically Signed By: ERNIE GARAY
[2025-10-08 23:38] LABS: Troponin-I High Sensitivity 14.3 ng/L (<3.5-35.0)
[2025-10-09] VITALS (17 sets, daily range): BP systolic 102–143; BP diastolic 69–91; PULSE 78–109; RESP 15–34; TEMP 36.1–36.8; O2SAT 93–100; BMI 24.2; BMI 26.0
[2025-10-09 00:24] LABS: Anion Gap 17 (12-20); Blood Urea Nitrogen 10 mg/dL (9-16); Calcium 6.4 mg/dL (8.4-10.2); Carbon Dioxide 38 mmol/L (22-29); Chloride 87 mmol/L (96-108); Creatinine Clr Calc Pharmacy 121.2; Estimated Glomerular Filt Rate > 60; Magnesium 1.5 mg/dL (1.6-2.6); Potassium 2.9 mmol/L (3.3-5.1); Sodium 139 mmol/L (135-145)
[2025-10-09] MEDS: Potassium Chloride Packet 20 MEQ PACKET 40 MEQ PO ×4 (00:51→11:52)
[2025-10-09 05:32] LABS: Albumin Level 2.9 g/dL (3.5-5.0)
[2025-10-09] MEDS: Albuterol Sulfate 90 MCG 8 GM INHALER 1 PUFF INHALE ×3 (05:35→22:44)
[2025-10-09 05:38] LABS: Anion Gap 16 (12-20); Blood Urea Nitrogen 10 mg/dL (9-16); Calcium 6.1 mg/dL (8.4-10.2); Carbon Dioxide 36 mmol/L (22-29); Chloride 90 mmol/L (96-108); Creatinine Clr Calc Pharmacy 134.7; Estimated Glomerular Filt Rate > 60; Magnesium 1.5 mg/dL (1.6-2.6); Potassium 3.2 mmol/L (3.3-5.1); Sodium 139 mmol/L (135-145)
[2025-10-09 05:55] LABS: MANUAL DIFF FLAG NO
[2025-10-09 05:57] LABS: Hemoglobin 7.1 g/dl (14.0-18.0); Imm Gran Abs Auto 0.03 X10*3/uL (0.00-0.03); Imm Gran Pct Auto 0.4 % (0.0-0.4); Lymphocytes Absolute Auto 1.5 X10*3/uL (1.2-4.9); Mean Corpuscular HGB Conc 37.2 g/dl (31.0-36.0); Mean Corpuscular Hemoglobin 39.9 pg (27.0-33.0); Mean Corpuscular Volume 107.3 fL (80.0-98.0); NRBC Abs Auto 0.020 X10*3/uL (0.0-0.012); NRBC Pct Auto 0.2 /100WBC (0.0-0.2); Platelet Count 247 X10*3/uL (160-400); Red Blood Count 1.78 X10*6/uL (4.60-5.80); White Blood Count 8.1 X10*3/uL (4.8-10.8)
[2025-10-09 06:13] LABS: Hematocrit 19.1 % (42.0-52.0)
[2025-10-09] MEDS: Calcium Gluconate/NaCl,Iso-Osm 2 GM/100 ML PLAST..BAG IV (06:32)
[2025-10-09] MEDS: Magnesium Sulfate/H2O 2 GM/50 ML PIGGYBACK IV (06:34)
[2025-10-09] MEDS: Nicotine 21 MG PATCH.TD24 TRANSDERMA (08:35)
[2025-10-09] MEDS: Thiamine HCL 100 MG in 0.9 % Sodium Chloride 100 ML 202 MG IV (08:35)
[2025-10-09 08:59] LABS: OBS Int Ctl Valid YES; OBS1 NEGATIVE (NEGATIVE)
--- NOTE | 2025-10-09 09:01 | PM.CCPN ---
Subjective Subjective Date of Service: 10/09/25 Interval History: no significant overnight events Critical Care Time (minutes): 0 Physical Exam Vital Signs: Vital Signs: Last Vital Signs Temp 97.7 F 10/09/25 08:00 Pulse 104 H 10/09/25 08:00 Resp 34 H 10/09/25 08:00 BP 111/78 10/09/25 08:00 Pulse Ox 94 10/09/25 08:00 O2 Del Method Room Air 10/09/25 08:00 O2 Flow Rate 1 10/09/25 04:00 BMI result Body Mass Index 24.2 Const: General: cooperative, healthy appearing, comfortable, no acute distress, well developed, alert, awake and Physically active Orientation/consciousness: patient oriented x3 HEENT: Head: Yes normal to inspection, Yes normocephalic and Yes atraumatic Eyes: General: appearance normal, both eyes and all related structures Neck: Neck: Yes normal visual inspection, Yes full ROM, Yes no meningeal signs, Yes trachea midline and Yes supple Chest: Chest palpation & inspection: normal inspection of the chest Resp: Other: some appreciable rhonchi; no appreciable rales, wheezing Effort & Inspection: normal respiratory effort Cardio: Rate: regular rate Rhythm: regular rhythm GI: Inspection: Yes normal to inspection, No Abdominal wall edema and No distended Palpation (GI): Soft to palpation, not firm, nontender, no guarding and not rigid Skin: General skin exam: no rashes or lesions noted Neuro: General: patient oriented x3, tone normal, moves all extremities, no meningeal signs and no focal motor deficits Extrem: Other: appreciable trace pitting edema to bilateral shins General: Yes normal to inspection, Yes full ROM and Yes capillary refill normal Psych: Appearance: grossly normal Objective Data Labs 10/09/25 05:50 10/09/25 05:05 Labs: Laboratory Results - last 24 hr 10/08/25 10/08/25 10/08/25 10:54 11:24 12:05 WBC 17.0 H RBC 2.55 L Hgb 9.5 L Hct 27.0 L MCV 105.9 H MCH 37.3 H MCHC 35.2 RDW 17.9 H Plt Count 365 MPV 9.8 Immature Gran % (Auto) 0.6 H Neut % (Auto) 87.6 H Lymph % (Auto) 6.5 L [place] % (Auto) 5.3 Eos % (Auto) 0.0 Baso % (Auto) 0.0 Lymph # (Auto) 0.2 L [place] # (Auto) 0.2 Eos # (Auto) 0.0 Baso # (Auto) 0.0 Abs Immat Gran (auto) 0.02 Absolute Neuts (auto) 3.0 Absolute Nucleated RBC 0.000 Nucleated RBC % (auto) 0.0 PT 18.0 H INR 1.5 H VBG pH 7.64 H* VBG pCO2 41 VBG pO2 47 VBG HCO3 45 H VBG O2 Saturation 73.0 VBG Base Excess 22.0 Sodium 134 L Potassium 2.2 L* Chloride 73 L Carbon Dioxide 38 H Anion Gap 25 H BUN 11 Creatinine 0.80 Estim Creat Clear Calc 121.2 Estimated GFR > 60 Random Glucose 108 Lactic Acid 9.9 H* Lactic Acid F/U @ 2Hr Lactic Acid F/U @ 4Hr Calcium 5.8 L* D Phosphorus Magnesium 0.7 L* Total Bilirubin 1.3 H Direct Bilirubin 0.5 AST 72 H ALT 9 Alkaline Phosphatase 109 Ammonia Cancelled Total Creatine Kinase 304 H Troponin I High Sens 13.8 C-Reactive Protein 9.03 H Total Protein 6.4 L Albumin 3.3 L Lipase 17 Procalcitonin 0.12 TSH 4.30 H Free T4 0.99 Random Cortisol Urine Color Urine Appearance Urine pH Ur Specific [place] Urine Protein Urine Glucose (UA) Urine Ketones Urine Blood Urine Nitrite Ur Leukocyte Esterase Stool Occult Blood Urine Opiates Screen Ur Buprenorphine Scrn Ur Oxycodone Screen Urine Methadone Screen Urine Fentanyl Screen Ur Barbiturates Screen Ur Phencyclidine Scrn Ur Amphetamines Screen U Benzodiazepines Scrn Urine Cocaine Screen U Marijuana (THC) Screen Ethyl Alcohol 16 Influenza Type A (PCR) NEGATIVE Influenza Type B (PCR) NEGATIVE RSV RNA Qual (PCR) NEGATIVE SARS-CoV-2 RNA (RT-PCR) NEGATIVE Blood Type Antibody Screen 10/08/25 10/08/25 10/08/25 12:50 13:35 15:01 WBC RBC Hgb Hct MCV MCH MCHC RDW Plt Count MPV Immature Gran % (Auto) Neut % (Auto) Lymph % (Auto) [place] % (Auto) Eos % (Auto) Baso % (Auto) Lymph # (Auto) [place] # (Auto) Eos # (Auto) Baso # (Auto) Abs Immat Gran (auto) Absolute Neuts (auto) Absolute Nucleated RBC Nucleated RBC % (auto) PT INR VBG pH VBG pCO2 VBG pO2 VBG HCO3 VBG O2 Saturation VBG Base Excess Sodium 135 Potassium 2.1 L* Chloride 81 L Carbon Dioxide 39 H Anion Gap 17 BUN 9 Creatinine 0.60 Estim Creat Clear Calc 161.6 Estimated GFR > 60 Random Glucose 103 Lactic Acid Lactic Acid F/U @ 2Hr 6.5 H* Lactic Acid F/U @ 4Hr Calcium 6.0 L* Phosphorus 4.6 H Magnesium 1.2 L* Total Bilirubin Direct Bilirubin AST ALT Alkaline Phosphatase Ammonia Total Creatine Kinase Troponin I High Sens C-Reactive Protein Total Protein Albumin Lipase Procalcitonin TSH Free T4 Random Cortisol 16.5 Urine Color Yellow Urine Appearance Clear Urine pH 6.5 Ur Specific [place] 1.010 Urine Protein Trace Urine Glucose (UA) Negative Urine Ketones Negative Urine Blood Negative Urine Nitrite Negative Ur Leukocyte Esterase Negative Stool Occult Blood Urine Opiates Screen Not Detected Ur Buprenorphine Scrn Not Detected Ur Oxycodone Screen Not Detected Urine Methadone Screen Not Detected Urine Fentanyl Screen Not Detected Ur Barbiturates Screen POSITIVE H Ur Phencyclidine Scrn Not Detected Ur Amphetamines Screen Not Detected U Benzodiazepines Scrn Not Detected Urine Cocaine Screen Not Detected U Marijuana (THC) Screen POSITIVE H Ethyl Alcohol Influenza Type A (PCR) Influenza Type B (PCR) RSV RNA Qual (PCR) SARS-CoV-2 RNA (RT-PCR) Blood Type Antibody Screen 10/08/25 10/08/25 10/09/25 17:16 23:13 05:05 WBC Cancelled RBC Cancelled Hgb Cancelled Hct Cancelled MCV Cancelled MCH Cancelled MCHC Cancelled RDW Cancelled Plt Count Cancelled MPV Cancelled Immature Gran % (Auto) Cancelled Neut % (Auto) Cancelled Lymph % (Auto) Cancelled [place] % (Auto) Cancelled Eos % (Auto) Cancelled Baso % (Auto) Cancelled Lymph # (Auto) Cancelled [place] # (Auto) Cancelled Eos # (Auto) Cancelled Baso # (Auto) Cancelled Abs Immat Gran (auto) Cancelled Absolute Neuts (auto) Cancelled Absolute Nucleated RBC Cancelled Nucleated RBC % (auto) Cancelled PT INR VBG pH VBG pCO2 VBG pO2 VBG HCO3 VBG O2 Saturation VBG Base Excess Sodium 139 139 Potassium 2.9 L* D 3.2 L Chloride 87 L 90 L Carbon Dioxide 38 H 36 H Anion Gap 17 16 BUN 10 10 Creatinine 0.80 0.72 Estim Creat Clear Calc 121.2 134.7 Estimated GFR > 60 > 60 Random Glucose 107 111 Lactic Acid Lactic Acid F/U @ 2Hr Lactic Acid F/U @ 4Hr 3.9 H* Calcium 6.4 L D 6.1 L Phosphorus 6.4 H 4.1 Magnesium 1.5 L 1.5 L Total Bilirubin Direct Bilirubin AST ALT Alkaline Phosphatase Ammonia Total Creatine Kinase Troponin I High Sens 14.3 C-Reactive Protein Total Protein Albumin 2.9 L Lipase Procalcitonin TSH Free T4 Random Cortisol Urine Color Urine Appearance Urine pH Ur Specific [place] Urine Protein Urine Glucose (UA) Urine Ketones Urine Blood Urine Nitrite Ur Leukocyte Esterase Stool Occult Blood Urine Opiates Screen Ur Buprenorphine Scrn Ur Oxycodone Screen Urine Methadone Screen Urine Fentanyl Screen Ur Barbiturates Screen Ur Phencyclidine Scrn Ur Amphetamines Screen U Benzodiazepines Scrn Urine Cocaine Screen U Marijuana (THC) Screen Ethyl Alcohol Influenza Type A (PCR) Influenza Type B (PCR) RSV RNA Qual (PCR) SARS-CoV-2 RNA (RT-PCR) Blood Type Antibody Screen 10/09/25 10/09/25 10/09/25 05:50 06:28 08:48 WBC 8.1 RBC 1.78 L D Hgb 7.1 L D Hct 19.1 L* D MCV 107.3 H MCH 39.9 H MCHC 37.2 H RDW 18.6 H Plt Count 247 D MPV 9.4 Immature Gran % (Auto) 0.4 Neut % (Auto) 74.0 H Lymph % (Auto) 18.3 L [place] % (Auto) 5.4 Eos % (Auto) 1.4 Baso % (Auto) 0.5 Lymph # (Auto) 1.5 [place] # (Auto) 0.4 Eos # (Auto) 0.1 Baso # (Auto) 0.0 Abs Immat Gran (auto) 0.03 Absolute Neuts (auto) 6.0 Absolute Nucleated RBC 0.020 H Nucleated RBC % (auto) 0.2 PT INR VBG pH VBG pCO2 VBG pO2 VBG HCO3 VBG O2 Saturation VBG Base Excess Sodium Potassium Chloride Carbon Dioxide Anion Gap BUN Creatinine Estim Creat Clear Calc Estimated GFR Random Glucose Lactic Acid Lactic Acid F/U @ 2Hr Lactic Acid F/U @ 4Hr Calcium Phosphorus Magnesium Total Bilirubin Direct Bilirubin AST ALT Alkaline Phosphatase Ammonia Total Creatine Kinase Troponin I High Sens C-Reactive Protein Total Protein Albumin Lipase Procalcitonin TSH Free T4 Random Cortisol Urine Color Urine Appearance Urine pH Ur Specific [place] Urine Protein Urine Glucose (UA) Urine Ketones Urine Blood Urine Nitrite Ur Leukocyte Esterase Stool Occult Blood NEGATIVE Urine Opiates Screen Ur Buprenorphine Scrn Ur Oxycodone Screen Urine Methadone Screen Urine Fentanyl Screen Ur Barbiturates Screen Ur Phencyclidine Scrn Ur Amphetamines Screen U Benzodiazepines Scrn Urine Cocaine Screen U Marijuana (THC) Screen Ethyl Alcohol Influenza Type A (PCR) Influenza Type B (PCR) RSV RNA Qual (PCR) SARS-CoV-2 RNA (RT-PCR) Blood Type A Positive Antibody Screen NEGATIVE Progress Note: A&P Assessment and plan (1) Alcohol withdrawal: Status: Acute (2) Electrolyte abnormality: Status: Acute Plan Patient is a 50 Y M w/ alcohol misuse w/ recent admission for alcohol withdrawal, though left against medical advice, reported last alcohol 10/07, presenting to ED on 10/08 w/ 2-months of recurrent falls; ED trauma work-up reassuring; otherwise, ED work-up demonstrating electrolyte derangements; patient admitted ICU for closer monitoring of electrolytes and c/f worsening alcohol withdrawal N: recurrent falls, likely multi-factorial possibly d/t intoxication/withdrawal, electrolyte derangements, to closely monitor CV: no acute issues; to closely monitor hemodynamics R: subjective dyspnea, though w/o hypoxia nor overt respiratory distress/failure; empiric treatment of pneumonia, to closely monitor GI: no acute issues : multiple electrolyte derangements, improving, replete and closely monitor H: anemia, likely d/t hemodilution, to follow-up stool occult; chemical DVT prophylaxis ID: empiric treatment of pneumonia w/ zosyn; to follow-up BCx 10/08 E: TSH/T4, random cortisol within normal limits; to monitor hypo-/hyper-glycemia P: alcohol misuse, addiction medicine Quality Stroke Does the patient have a stroke diagnosis?: No VTE Prior VTE?: No VTE Risk Level:: Medical - moderate - high VTE Device Contraindication: N/A - Device Ordered VTE Drug Contraindication: N/A - Med Ordered
[2025-10-09] MEDS: Lidocaine 4 % Patch ADH..PATCH 2 PATCH TRANSDERMA (11:52)
[2025-10-09 15:14] LABS: MANUAL DIFF FLAG NO
[2025-10-09 15:17] LABS: Hematocrit 22.1 % (42.0-52.0); Hemoglobin 8.0 g/dl (14.0-18.0); Imm Gran Abs Auto 0.06 X10*3/uL (0.00-0.03); Imm Gran Pct Auto 0.6 % (0.0-0.4); Lymphocytes Absolute Auto 1.3 X10*3/uL (1.2-4.9); Mean Corpuscular HGB Conc 36.2 g/dl (31.0-36.0); Mean Corpuscular Hemoglobin 40.0 pg (27.0-33.0); NRBC Abs Auto 0.030 X10*3/uL (0.0-0.012); NRBC Pct Auto 0.3 /100WBC (0.0-0.2); Platelet Count 279 X10*3/uL (160-400); Red Blood Count 2.00 X10*6/uL (4.60-5.80); White Blood Count 9.3 X10*3/uL (4.8-10.8)
[2025-10-09 15:18] LABS: Mean Corpuscular Volume 110.5 fL (80.0-98.0)
[2025-10-09 15:22] LABS: INTERNATIONAL NORM RATIO 1.1 (0.9-1.1); Prothrombin Time 13.8 SEC (11.2-13.5)
--- NOTE | 2025-10-09 15:29 | MHC.RECOVRN ---
Attempted to meet with pt however multiple visitors present/ respecting pt's privacy.
[2025-10-09 15:37] LABS: Alanine Aminotransferase 11 U/L (0-40); Albumin Level 3.4 g/dL (3.5-5.0); Alkaline Phosphatase 96 U/L (39-117); Anion Gap 17 (12-20); Aspartate Amino Transferase 51 U/L (5-37); Blood Urea Nitrogen 11 mg/dL (9-16); Calcium 6.9 mg/dL (8.4-10.2); Carbon Dioxide 34 mmol/L (22-29); Chloride 93 mmol/L (96-108); Creatinine Clr Calc Pharmacy 121.2; Estimated Glomerular Filt Rate > 60; Magnesium 1.7 mg/dL (1.6-2.6); Potassium 3.3 mmol/L (3.3-5.1); Sodium 141 mmol/L (135-145); Total Protein 5.8 g/dL (6.5-8.0)
[2025-10-10] VITALS (9 sets, daily range): BP systolic 108–147; BP diastolic 75–97; PULSE 74–135; RESP 16–20; TEMP 36.2–36.8; O2SAT 95–98
[2025-10-10 03:31] LABS: CDiff Gene PCR NEGATIVE (Negative)
[2025-10-10] MEDS: Albuterol Sulfate 90 MCG 8 GM INHALER 1 PUFF INHALE (06:07)
[2025-10-10 07:24] LABS: Hemoglobin 7.3 g/dl (14.0-18.0); Lymphocytes Absolute Auto 1.7 X10*3/uL (1.2-4.9)
[2025-10-10 07:25] LABS: Imm Gran Abs Auto 0.06 X10*3/uL (0.00-0.03); Imm Gran Pct Auto 0.6 % (0.0-0.4); Mean Corpuscular HGB Conc 35.8 g/dl (31.0-36.0); Mean Corpuscular Hemoglobin 39.5 pg (27.0-33.0); NRBC Abs Auto 0.000 X10*3/uL (0.0-0.012); NRBC Pct Auto 0.0 /100WBC (0.0-0.2); Platelet Count 267 X10*3/uL (160-400); Red Blood Count 1.85 X10*6/uL (4.60-5.80); White Blood Count 10.4 X10*3/uL (4.8-10.8)
[2025-10-10 07:26] LABS: Mean Corpuscular Volume 110.3 fL (80.0-98.0)
[2025-10-10 07:43] LABS: Hematocrit 20.4 % (42.0-52.0)
[2025-10-10 07:45] LABS: MANUAL DIFF FLAG SCAN
[2025-10-10 07:47] LABS: Anion Gap 16 (12-20); Blood Urea Nitrogen 10 mg/dL (9-16); Calcium 6.1 mg/dL (8.4-10.2); Carbon Dioxide 31 mmol/L (22-29); Chloride 92 mmol/L (96-108); Creatinine Clr Calc Pharmacy 156.4; Estimated Glomerular Filt Rate > 60; Sodium 136 mmol/L (135-145)
[2025-10-10 07:51] LABS: Magnesium 1.1 mg/dL (1.6-2.6); Potassium 2.9 mmol/L (3.3-5.1)
[2025-10-10] MEDS: Potassium Chloride/H20 10 MEQ/100 ML PIGGYBACK 100 MEQ IV ×2 (08:41→10:17)
[2025-10-10] MEDS: Potassium Chloride ER 20 MEQ TAB.ER.PRT 40 MEQ PO (08:41)
[2025-10-10] MEDS: Nicotine 21 MG PATCH.TD24 TRANSDERMA (08:46)
[2025-10-10] MEDS: Thiamine HCL 100 MG in 0.9 % Sodium Chloride 100 ML 202 MG IV (12:05)
--- NOTE | 2025-10-10 12:53 | P.PNIM_ITS ---
Subjective Subjective Date of Service: 10/10/25 Interval History: Seen and examined this morning States he feels better and is ready for discharge Discussed with him about his tachycardia as well as electrolyte imbalances as well as H&H issues At this time he is agreeable to stay hospitalized Review of Systems Negative except HPI/interval history. Physical Exam 2 Exam: Exam: General - no acute distress, appears comfortable Cardiovascular - tachycardic, sinus on monitor currently; previously with a. tach Lungs - normal respiratory effort, clear to auscultation bilaterally, no wheezing Abdomen - soft, nontender, no rebound or guarding Extremities - no edema bilaterally Neuro - awake and alert, no focal deficits Vital Signs: Vital Signs: Last Vital Signs Temp 98.2 F 10/10/25 11:09 Pulse 112 H 10/10/25 11:09 Resp 18 10/10/25 11:09 BP 137/97 H 10/10/25 11:09 Pulse Ox 97 10/10/25 11:09 O2 Del Method Room Air 10/10/25 11:09 O2 Flow Rate 2 10/09/25 13:00 BMI result Body Mass Index 26.0 Objective Data Active Medications Albuterol Sulfate (Albuterol Sulfate 90 Mcg 8 Gm Inhaler) 1 puff INHALE Q6H PRN PRN Reason: Shortness of Breath/Wheezing Last Admin: 10/10/25 06:07 Dose: 1 puff Documented By: KALANI Benzonatate (Benzonatate 100 Mg Capsule) 100 mg PO TID PRN PRN Reason: Cough Last Admin: 10/08/25 23:21 Dose: 100 mg Documented By: YASMIN Enoxaparin Sodium (Enoxaparin Sodium 40 Mg/0.4 Ml Syringe) 40 mg SUBCUT Q24H [facility] Last Admin: 10/09/25 14:30 Dose: Not Given Documented By: AGUILAR Non-Admin Reason: Physician Held Med Gabapentin (Gabapentin 100 Mg Capsule) 100 mg PO TID PRN PRN Reason: Pain, Moderate(Pain Scale 4-6) Last Admin: 10/09/25 22:52 Dose: 100 mg Documented By: KALANI Thiamine HCl 100 mg/ Sodium (Chloride) 101 mls @ 202 mls/hr IV DAILY [facility] Last Admin: 10/10/25 12:05 Dose: 202 mls/hr Documented By: ANDRIY Folic Acid 1 mg/ Sodium (Chloride) 50.2 mls @ 100.4 mls/hr IV DAILY JUN Last Infusion: 10/09/25 09:07 Dose: Infused Documented By: AGUILAR Acetaminophen (Ofirmev) 1,000 mg in 100 mls @ 400 mls/hr IV Q6H PRN PRN Reason: Fever Lidocaine (Lidocaine 4 % Patch Adh..Patch) 2 patch TRANSDERMA DAILY [facility]; Protocol Last Admin: 10/10/25 08:54 Dose: Not Given Documented By: FAUZIA Non-Admin Reason: Patient Refused Loperamide HCl (Loperamide Hcl 2 Mg Capsule) 2 mg PO Q4H PRN PRN Reason: Diarrhea Last Admin: 10/10/25 12:27 Dose: 2 mg Documented By: ANDRIY Nicotine (Nicotine 21 Mg Patch.Td24) 21 mg TRANSDERMA DAILY [facility] Last Admin: 10/10/25 08:46 Dose: 21 mg Documented By: FAUZIA Nicotine Polacrilex (Nicotine Polacrilex 2 Mg Gum) 2 mg BUCCAL Q1H PRN PRN Reason: Nicotine Cravings Last Admin: 10/10/25 12:14 Dose: 2 mg Documented By: ANDRIY Pharmacy Consult (Consult Rx Etoh Phenob Im/Po) 1 each MISCELLANE ONCE PRN; Protocol PRN Reason: Consult order Phenobarbital (Phenobarbital 30 Mg Tablet) 30 mg PO BID [facility]; Protocol Stop: 10/12/25 09:01 Phenobarbital (Phenobarbital 30 Mg Tablet) 30 mg PO DAILY [facility]; Protocol Stop: 10/14/25 09:01 Labs 10/10/25 06:52 10/10/25 06:52 Labs: Laboratory Results - last 24 hr 10/09/25 10/10/25 10/10/25 15:08 02:10 06:52 MCV 110.5 H 110.3 H MCH 40.0 H 39.5 H MCHC 36.2 H 35.8 RDW 18.7 H 18.8 H Plt Count 279 267 MPV 9.6 10.4 Immature Gran % (Auto) 0.6 H 0.6 H Neut % (Auto) 80.5 H 74.3 H Lymph % (Auto) 13.[address] [place] % (Auto) 3.9 6.2 Eos % (Auto) 1.0 1.6 Baso % (Auto) 0.3 0.6 Lymph # (Auto) 1.[address] [place] # (Auto) 0.4 0.6 Eos # (Auto) 0.1 0.2 Baso # (Auto) 0.0 0.1 Abs Immat Gran (auto) 0.06 H 0.06 H Absolute Neuts (auto) 7.5 7.7 Absolute Nucleated RBC 0.030 H 0.000 Nucleated RBC % (auto) 0.3 H 0.0 Smear Tech's Comments VERIFIED PT 13.8 H D INR 1.1 Anion Gap 17 16 Estim Creat Clear Calc 121.2 156.4 Estimated GFR > 60 > 60 Random Glucose 126 H 100 Calcium 6.9 L D 6.1 L D Phosphorus 2.5 L Magnesium 1.7 1.1 L* Total Bilirubin 1.1 H AST 51 H ALT 11 Alkaline Phosphatase 96 Total Protein 5.8 L Albumin 3.4 L C. difficile Tox B Gene NEGATIVE Microbiology Microbiology Results: Microbiology 10/08/25 10:54 Blood Culture - Preliminary Blood - Venous No growth after 24 hours. 10/08/25 11:13 Blood Culture - Preliminary Blood - Venous No growth after 24 hours. Assessment and Plan (1) Alcohol withdrawal: Status: Acute Plan 50-year-old male with a past medical history of alcohol use disorder hospitalized since 10/08/2025 for the treatment of alcohol withdrawal with multiple electrolyte derangements. Initially managed in the intensive care unit and subsequently transferred out 10/09/2025. 1. Alcohol use disorder with acute alcohol withdrawal On phenobarbital per protocol CIWA scores improving Continue with MVI/thiamine Monitor electrolytes addicition med consult 2. Severe hypokalemia and hypomagnesemia Due to alcohol use disorder K2.9 and Mag 1.1 today. Replete with IV NPO KCl and IV Mag Repeat lytes this afternoon 3. Sinus tachycardia Has some bursts of atrial tachycardia on the monitor today but now back in sinus tach Likely multifactorial including electrolyte derangements Check 2D echo 4. Microcytic anemia, acute on chronic No evidence of blood loss Check B12/folate Repeat H&H this afternoon, transfuse if below 7. 5. Diarrhea Per patient improving C diff testing negative Imodium p.r.n. Discontinue Zosyn Full Code DVT - lovenox Quality Stroke Does the patient have a stroke diagnosis?: No VTE Prior VTE?: No VTE Risk Level:: Medical - moderate - high VTE Device Contraindication: N/A - Device Ordered VTE Drug Contraindication: N/A - Med Ordered
[2025-10-10 13:32] LABS: Hemoglobin 7.1 g/dl (14.0-18.0)
[2025-10-10 13:42] LABS: Hematocrit 19.5 % (42.0-52.0)
[2025-10-10 13:43] LABS: Magnesium 1.2 mg/dL (1.6-2.6); Potassium 3.2 mmol/L (3.3-5.1)
[2025-10-10 14:10] LABS: Folate 4.7 ng/mL (> or = 4.0); Vitamin B12 358 pg/mL (200-900)
[2025-10-10] MEDS: Potassium Chloride Packet 20 MEQ PACKET 40 MEQ PO (14:26)
[2025-10-10] MEDS: Magnesium Sulfate/H2O 2 GM/50 ML PIGGYBACK IV (14:27)
--- NOTE | 2025-10-10 15:07 | MHC.RECOVRN ---
Met with pt in [facility] for evaluation of alcohol use disorder. See recovery/ eval for more info.
[2025-10-10 19:07] LABS: Magnesium 1.5 mg/dL (1.6-2.6); Potassium 3.6 mmol/L (3.3-5.1)
--- NOTE | 2025-10-10 22:43 | PC.NURSE ---
Assumed care at 1900. Pt verbalizes plans to leave AMA on first encounter. Education provided; risks of leaving AMA with unresolved medical conditions explained. Dr. Major the night hospitalist at bedside. Pt given last dose of IV Magnesium. Verbalizes understanding of risks. AMA form signed at about 2215. Pt leaves hospital unaccompanied.
--- NOTE | 2025-10-10 23:49 | PM.DS ---
DS: Providers Provider Date of Service: 10/10/25 Date of admission: 10/08/25 14:43 Date of discharge: 10/10/25 Primary care physician: MICAH Hope- Consults: 10/09/25 09:03 Addiction Medicine Provider Routine Consulting Provider: Addiction Covering Reason for consultation: Alcohol Misuse Has provider been notified: No DS: Diagnosis Discharge Diagnosis (1) Alcohol withdrawal: Status: Acute DS: Summary Hospital Course Hospital Course: Against medical advice note: RN reported that patient does not want to stay in the hospital and wants to leave against medical advice. I explained the patient about risk of leaving against medical advice which noted on lead to worsening current condition may even lead to . Patient verbalized and understood the risks involved and still wanted to leave against medical advice. Patient is strongly advised to follow with his PCP-which he mentioned he will Also recommended to obtain labs in next 2-3 days with the PCP. Patient has insight into his condition. Time Attestation Total time managing care of this patient today: 30 mintues. Discharge Coordination Time (in mins): 35 Quality: Safe Use of Opioids Does Pt have an Active Cancer Diagnosis on the Problem List?: No Quality: Stroke Does the patient have a stroke diagnosis?: No Physical Exam Exam: Exam: Gen: Appears be in no acute distress HEENT: NCAT, Moist mucosa. Pulmonary: Vesicular breath sounds, fair air entry CVS: Normal S1-S2 Abdomen: BS+, Soft, Nontender Extremities: Warm well perfused Neuro: Alert and awake. Vital Signs: Vital Signs: Last Vital Signs Temp 97.2 F 10/10/25 19:52 Pulse 114 H 10/10/25 19:52 Resp 18 10/10/25 19:52 BP 129/76 10/10/25 19:52 Pulse Ox 98 10/10/25 19:52 O2 Del Method Room Air 10/10/25 19:52 O2 Flow Rate 2 10/09/25 13:00 BMI result Body Mass Index 26.0 DS: Data Data Completed and Pending Labs on day of discharge: Laboratory Results - last 24 hr 10/09/25 10/10/25 10/10/25 06:28 02:10 06:52 WBC 10.4 RBC 1.85 L Hgb 7.3 L Hct 20.4 L* MCV 110.3 H MCH 39.5 H MCHC 35.8 RDW 18.8 H Plt Count 267 MPV 10.4 Immature Gran % (Auto) 0.6 H Neut % (Auto) 74.3 H Lymph % (Auto) 16.7 L [place] % (Auto) 6.2 Eos % (Auto) 1.6 Baso % (Auto) 0.6 Lymph # (Auto) 1.7 [place] # (Auto) 0.6 Eos # (Auto) 0.2 Baso # (Auto) 0.1 Abs Immat Gran (auto) 0.06 H Absolute Neuts (auto) 7.7 Absolute Nucleated RBC 0.000 Nucleated RBC % (auto) 0.0 Smear Tech's Comments VERIFIED Sodium 136 Potassium 2.9 L* Chloride 92 L Carbon Dioxide 31 H Anion Gap 16 BUN 10 Creatinine 0.62 Estim Creat Clear Calc 156.4 Estimated GFR > 60 Random Glucose 100 Calcium 6.1 L D Phosphorus 2.5 L Magnesium 1.1 L* Vitamin B12 Folate C. difficile Tox B Gene NEGATIVE Blood Type A Positive Antibody Screen NEGATIVE Crossmatch See Detail 10/10/25 10/10/25 10/10/25 13:10 13:11 18:46 WBC RBC Hgb 7.1 L Hct 19.5 L* MCV MCH MCHC RDW Plt Count MPV Immature Gran % (Auto) Neut % (Auto) Lymph % (Auto) [place] % (Auto) Eos % (Auto) Baso % (Auto) Lymph # (Auto) [place] # (Auto) Eos # (Auto) Baso # (Auto) Abs Immat Gran (auto) Absolute Neuts (auto) Absolute Nucleated RBC Nucleated RBC % (auto) Smear Tech's Comments Sodium Potassium 3.2 L 3.6 Chloride Carbon Dioxide Anion Gap BUN Creatinine Estim Creat Clear Calc Estimated GFR Random Glucose Calcium Phosphorus Magnesium 1.2 L* 1.5 L Vitamin B12 358 Folate 4.7 C. difficile Tox B Gene Blood Type Antibody Screen Crossmatch Preliminary micro results at discharge 10/08/25 10:54 Blood Culture - Preliminary Blood - Venous No growth after 48 hours. 10/08/25 11:13 Blood Culture - Preliminary Blood - Venous No growth after 48 hours. Discharge Plan Discharge Patient Disposition: Left Against Medical Advice Discharge Diagnosis: alcohol withdrawal Referrals: Pedro Pablo Kent, FINANCIAL REPORTING SPECIALIST-BC [Primary Care Provider, Internal Medicine] - 1 Week Discharge Medications: No Action Primatene Mist 0.125 mg/actuation Hfa Aerosol Inhaler 1 puff INHALATION Q4H PRN (Reason: Shortness Of Breath Or Wheezing) Rx Instructions: may repeat once after 1 minute; do not exceed 8 inhalations per 24 hrs omeprazole 20 mg capsule,delayed release(DR/EC) 20 mg PO BID@0630,1630 Discharge Orders: Discharge Order (Routine); Ordered 10/10/25 Ordered By: Brad Major Print Language: Georgian Care Plan Goals: f/u with PCP in a week Health Concerns: Stop drinking alcohol Plan of Treatment: PCP follow up in a week Assessment: Alcohol withdrawal
--- NOTE | 2025-10-11 00:54 | PC.NURSE ---
This pt notified this keno writer of intend to leave AMA approximately 2029. This keno writer notified covering hospitalist of pt's request. Pt stated I'm only gonna drink beer not the hard stuff. I just wanna go home . Dr Major came to this pt's beside and spoke with pt regarding risks of leaving AMA. This pt was agreeable to repleting Mg prior to AMA which was done. Scheduled phenobarb held per MD order due to AMA. MD advised pt to follow up with PCP which pt verbalized plan back to this keno writer. Pt's reported his girlfriend would be picking him up. Pt ambulated independently off of unit via elevator in stable condition with all belongings.
== END 2025-10-10 22:15 | disposition left against medical advice (07) | DRG 770 ==
LOC: HO.ED 12:54 → HO.EDOVER 14:44 → HO.ICU 14:59 → HO.IMC 10-09 14:02
PROVIDERS: Hospitalist; Nurse Practitioner Family; Admitting Provider Internal Medicine Critical Care Medicine; Emergency Provider Emergency Medicine; PCP Nurse Practitioner Family; Visit Provider Family Medicine
DX: F10.939 Alcohol use, unspecified with withdrawal, unspecified (principal); I47.19 Other supraventricular tachycardia; D50.9 Iron deficiency anemia, unspecified; F17.210 Nicotine dependence, cigarettes, uncomplicated; E83.42 Hypomagnesemia; E87.6 Hypokalemia; Y90.0 Blood alcohol level of less than 20 mg/100 ml; R19.7 Diarrhea, unspecified; Z71.6 Tobacco abuse counseling; R29.6 Repeated falls; Z20.822 Contact with and (suspected) exposure to COVID-19; Z91.81 History of falling; Z79.899 Other long term (current) drug therapy
CPT/HCPCS: 36415; 70450; 71045; 72125; 80048; 80053; 80076; 80307; 81003; 82040; 82272; 82533; 82550; 82607; 82746; 82803; 83605; 83690; 83735; 84100; 84132; 84145; 84439; 84443; 84484; 85014; 85018; 85025; 85610; 86140; 86850; 86900; 86901; 86923; 87040; 87493; 87637; 93005; 93970; 94640; 99285; J0613; J1650; J1808; J1885; J2270; J2543; J2560; J3360; J3411; J3475; J3480; J7120; P9016; P9047; S9485

== ENCOUNTER → 2025-10-08 10:42 | Outpatient (BNV) | payer OTHER, SELFPAY | PROVIDERS: Emergency Provider Emergency Medicine; PCP Nurse Practitioner Family; Visit Provider Radiology Diagnostic Radiology | DX: S03.03XA Dislocation of jaw, bilateral, initial encounter (principal); Z04.3 Encounter for examination and observation following other accident; I67.82 Cerebral ischemia; G31.9 Degenerative disease of nervous system, unspecified; M79.661 Pain in right lower leg; M79.662 Pain in left lower leg; R05.9 Cough, unspecified; R50.9 Fever, unspecified | CPT/HCPCS: 70450; 71045; 72125; 93970 ==

== ENCOUNTER → 2025-10-08 10:42 | Outpatient (BNV) | payer OTHER, SELFPAY | PROVIDERS: Admitting Provider Internal Medicine Critical Care Medicine; Emergency Provider Emergency Medicine; PCP Nurse Practitioner Family; Visit Provider Internal Medicine | DX: R00.0 Tachycardia, unspecified (principal); I49.3 Ventricular premature depolarization | CPT/HCPCS: 93010 ==

== ENCOUNTER → 2025-10-08 14:43 | Outpatient (BNV) | payer OTHER, SELFPAY | PROVIDERS: Admitting Provider Internal Medicine Critical Care Medicine; Emergency Provider Emergency Medicine; PCP Nurse Practitioner Family; Visit Provider Family Medicine | DX: F10.939 Alcohol use, unspecified with withdrawal, unspecified (principal) | CPT/HCPCS: 99233 ==

== ENCOUNTER → 2025-10-08 14:43 | Outpatient (BNV) | payer OTHER, SELFPAY | PROVIDERS: Admitting Provider Internal Medicine Critical Care Medicine; Emergency Provider Emergency Medicine; PCP Nurse Practitioner Family; Visit Provider Internal Medicine Critical Care Medicine | DX: F10.939 Alcohol use, unspecified with withdrawal, unspecified (principal); E87.8 Other disorders of electrolyte and fluid balance, not elsewhere classified | CPT/HCPCS: 99223 ==

== ENCOUNTER 2025-10-14 06:37 | Inpatient (IN) | payer OTHER, SELFPAY ==
[2025-10-14] VITALS (8 sets, daily range): BP systolic 120–150; BP diastolic 82–100; PULSE 97–118; RESP 18–27; TEMP 36.4–37.1; O2SAT 97–99; BMI 25.4
--- NOTE | ~2025-10-14 | XR_ITS ---
CLINICAL HISTORY: weakness 2 view chest x-ray Comparison: CR/OR/SR - XR CHEST 1 VIEW - 10/08/25 11:41 EST Findings: There is mild blunting of the right costophrenic angle. Heart size is normal. No acute fracture. IMPRESSION: Small right pleural effusion and/or atelectasis. This document has been electronically signed by: Thierry Harris on 10/14/2025 08:51:35
--- NOTE | 2025-10-14 06:48 | ED.GENADULT ---
HPI - General Adult General Chief complaint: Extremity Problem Stated complaint: leg swelling Time Seen by Provider: 10/14/25 06:40 Source: EMS Mode of arrival: EMS Limitations: no limitations History of Present Illness ED Provider: HPI narrative: 50-year-old male with a history of tobacco use disorder, alcohol use disorder presenting with complaints of bilateral lower extremity edema this is a recurrent issue, patient notes that he has been alcohol free for the past 10 days, and is not interested in returning to chronic drinking, denies shortness of breath fevers or chills abdominal distention. Related Data Home Medications ?Medication ?Instructions ?Recorded ?Confirmed omeprazole 20 mg capsule,delayed 20 mg PO BID@0630,1630 09/26/21 10/08/25 release epinephrine 0.125 mg/actuation 1 puff inhalation Q4H PRN 08/31/25 10/08/25 aerosol inhaler (Primatene Mist) Shortness Of Breath Or Wheezing Allergies Allergy/AdvReac Type Severity Reaction Status Date / Time No Known Allergies Allergy Verified 10/14/25 06:47 Review of Systems Constitutional: Constitutional: Reports as per [facility] Past Medical History Medical History COPD (chronic obstructive pulmonary disease) Surgical History H/O hernia repair Family History Family History (Updated 08/31/25 @ 11:21 by Shaylee Magallanes NP) Father Cancer Social History Social History Household Members: None Housing: Other Housing Other:: mobile home Alcohol intake: current Alcohol intake frequency: 3 or more drinks per day Alcohol type: beer, wine and hard liquor Comment: Twelve white claws a day Patient Tobacco Use Status: Current everyday Tobacco user Tobacco use type: Cigarette Cigarette Packs Per Day: 2 Cigarettes Per Day: 40.0 Substance Use Type: Marijuana Advance Directives: No Advance Directives Information Provided: Yes Do you have a plan to hurt others: No Plan Physical Exam ED Exam Exam: ?General: ??Appears older than stated age ?No scleral icterus, Neck: Supple, no LAD ?CV: RRR, no obvious murmurs appreciated ?Resp: ?No wheezing rales rhonchi no stridor moving air well Abd: ?Bowel sounds are present, no tenderness no rebound no rigidity, no abdominal distention MSK: Distal pulses intact bilaterally posterior tibial and dorsalis pedis, +1 pitting edema with prominent veins Skin: Warm, dry, intact, no jaundice ?Neuro: ?Alert and oriented x3, moving upper and lower extremities symmetrically, no obvious facial asymmetry noted, cranial nerves 2-12 intact Vital Signs: Vital Signs - 24 hr 10/14/25 06:41 10/14/25 06:42 10/14/25 08:04 Temperature 97.6 F 98.2 F Pulse Rate 109 H 97 Respiratory Rate 18 20 Blood Pressure 131/82 140/89 H Pulse Oximetry 98 97 Oxygen Delivery Method Room Air Room Air Room Air BMI result Body Mass Index 25.4 Medical Decision Making Medical Decision Making [facility] Narrative: 6:52 AM 10/14/2025 (Dr. Michael Liu): Patient has good pulses, no respiratory issues, we will consider working up for considerations as below, history of alcohol use disorder low risk for withdrawal, has been alcohol free reportedly for the past 10 days, and he is appearing very well he is not tachycardic he is not anxious, and he is clinically sober without alcohol on breath, he does have history of electrolyte derangements and given the fact that he has had longstanding history of alcohol use we will check his LFTs disposition to be determined, this does not appear to be presenting with DVT scenario, did not feel further imaging such as ultrasound is indicated Differential Diagnosis Differential Diagnoses: The differential diagnosis associated with the presentation includes (Liver failure, JOANNE, electrolyte derangements, CHF, dependent leg edema, DVT, arterial insufficiency) Admission/Observation Consideration of admission/observation: Escalation of care including admission/observation considered Consult Healthcare Provider Management of the patient was discussed with: Hospitalist Lab Data [facility] Lab Attestation statement: I reviewed the patient's lab results. 10/14/25 07:06 10/14/25 07:06 Labs: Lab Results 10/14/25 10/14/25 Range/Units 07:06 07:07 WBC 8.1 (4.8-10.8) X10*3/uL RBC 2.00 L (4.60-5.80) X10*6/uL Hgb 7.6 L (14.0-18.0) g/dl Hct 21.7 L (42.0-52.0) % MCV 108.5 H (80.0-98.0) fL MCH 38.0 H (27.0-33.0) pg MCHC 35.0 (31.0-36.0) g/dl RDW 21.2 H (11.0-16.0) % Plt Count 274 (160-400) X10*3/uL MPV 10.0 (9.4-12.4) fL Immature Gran % (Auto) 0.4 (0.0-0.4) % Neut % (Auto) 74.8 H (45-73) % Lymph % (Auto) 15.6 L (20-40) % [place] % (Auto) 7.8 (2-11) % Eos % (Auto) 0.9 (0-4) % Baso % (Auto) 0.5 (0-2) % Lymph # (Auto) 1.3 (1.2-4.9) X10*3/uL [place] # (Auto) 0.6 (0.1-1.2) X10*3/uL Eos # (Auto) 0.1 (0.0-0.4) X10*3/uL Baso # (Auto) 0.0 (0.0-0.2) X10*3/uL Abs Immat Gran (auto) 0.03 (0.00-0.03) X10*3/uL Absolute Neuts (auto) 6.1 (2.0-8.3) x10*3/uL Absolute Nucleated RBC 0.000 (0.0-0.012) X10*3/uL Nucleated RBC % (auto) 0.0 (0.0-0.2) /100WBC Sodium 138 (135-145) mmol/L Potassium 3.1 L (3.3-5.1) mmol/L Chloride 99 (96-108) mmol/L Carbon Dioxide 28 (22-29) mmol/L Anion Gap 14 (12-20) BUN 10 (9-16) mg/dL Creatinine 0.64 (0.5-1.4) mg/dL Estim Creat Clear Calc 151.5 Estimated GFR > 60 Random Glucose 95 (60-115) mg/dL Calcium 6.4 L (8.4-10.2) mg/dL Magnesium 0.9 L* (1.6-2.6) mg/dL Total Bilirubin 0.5 (0.0-1.0) mg/dL AST 58 H (5-37) U/L ALT 9 (0-40) U/L Alkaline Phosphatase 117 (39-117) U/L NT-Pro-B Natriuret Pep 1427.5 H (<300) pg/mL Total Protein 5.6 L (6.5-8.0) g/dL Albumin 3.2 L (3.5-5.0) g/dL Lipase 17 (8-78) U/L TSH 6.39 H (0.32-4.0) uIU/mL Ethyl Alcohol < 10 mg/dL Independent Interpretation I performed an independent interpretation of an: EKG (97 beats per minute QTC 490, no dysrhythmia, no evidence for underlying cardiac ischemia) and Plain X-Ray (No pulmonary edema noted, no consolidations) External Record Review External record reviewed: Inpatient record Tests considered The following testing was considered but not selected: Ultrasound DVT studies bilateral lower extremities Chronic Conditions Patient?s care impacted by: Other (Alcohol use disorder) Social Determinants Patient?s care significantly limited by Social Determinants of Health including: Alcoholism and drug addiction in family and Problems related to primary support group Critical Care Time Critical Care Time Critical Care Time: Yes Total Critical Care Time: 45 Attestation: Time is exclusive of separately billable procedures. Time includes: direct patient care, patient reassessment, coordination of patient care, interpretation of data (laboratory data, pulse oximetry, arterial blood gases and chest xrays), review of patient's medical records, medical consultation and documentation of patient care. Procedures excluded from critical care time: central intravenous line placement and electrocardiography. Discharge Plan Discharge Clinical Impression: Hypomagnesemia, Hypokalemia, Bilateral leg edema, Alcoholism Prescriptions: No Action Primatene Mist 0.125 mg/actuation Hfa Aerosol Inhaler 1 puff INHALATION Q4H PRN (Reason: Shortness Of Breath Or Wheezing) Rx Instructions: may repeat once after 1 minute; do not exceed 8 inhalations per 24 hrs omeprazole 20 mg capsule,delayed release(DR/EC) 20 mg PO BID@2850,0523 Print Language: Kazakh
[2025-10-14 07:10] LABS: MANUAL DIFF FLAG NO
[2025-10-14 07:19] LABS: Hematocrit 21.7 % (42.0-52.0); Hemoglobin 7.6 g/dl (14.0-18.0); Imm Gran Abs Auto 0.03 X10*3/uL (0.00-0.03); Imm Gran Pct Auto 0.4 % (0.0-0.4); Lymphocytes Absolute Auto 1.3 X10*3/uL (1.2-4.9); Mean Corpuscular HGB Conc 35.0 g/dl (31.0-36.0); Mean Corpuscular Hemoglobin 38.0 pg (27.0-33.0); Mean Corpuscular Volume 108.5 fL (80.0-98.0); NRBC Abs Auto 0.000 X10*3/uL (0.0-0.012); NRBC Pct Auto 0.0 /100WBC (0.0-0.2); Platelet Count 274 X10*3/uL (160-400); Red Blood Count 2.00 X10*6/uL (4.60-5.80); White Blood Count 8.1 X10*3/uL (4.8-10.8)
--- OUTSIDE RECORDS SUMMARY | 2025-10-14 07:37 | XMS_ITS | Patient Health Record ---
Author Organization [facility] Address [address] [place] [id number] Care Team Providers Care Client Partner Name Role Phone Ladarius Flores M.D. Primary Care Provider Anahy hungdonato Barry Portillo Unavailable [phone] Reason For Referral No Information Medications Medication [...] Options Details Miscellaneous: Marital status: single Occupation: production line welder Section Notes: Smoker; approx. 2 beers QD Problems Problem Type SNOMED Code ICD Code Onset Dates Problem Status W/U Status Risk Notes Problem Barretts esophagus (005230573) Barretts esophagus (530.85) Active confirmed Problem Gastroesophageal reflux disease (235978182) GERD (gastroesopha geal reflux disease) (530.81) Active confirmed Plan Of Treatment Future Test Test Name Order Date UPPER GI ENDOSCOPY 04/17/2012 Insurance Providers Payer Name Payer Address Payer Phone Subscriber Number Group Number Insured Name Patient Relationship to Insured Coverage Start Date Coverage End Date [facility] [address] [address] [place], [place] [id number] AMANDAJORGE ALBERTO Self - patient is the insured [facility] [facility] [address] [place] [address] [id number] AMANDAJORGE ALBERTO WINSTON Self - patient is the insured Medical (General) History Medical History History ICD Code egd 08-27-2006 and 08/26 esophageal reflux vargas's esophagus asthma Denies [place],DM,CVA,renal disease Surgical History Surgery Date(Month/Year) hernia surgery
[2025-10-14 07:46] LABS: Alanine Aminotransferase 9 U/L (0-40); Albumin Level 3.2 g/dL (3.5-5.0); Alkaline Phosphatase 117 U/L (39-117); Anion Gap 14 (12-20); Aspartate Amino Transferase 58 U/L (5-37); Blood Urea Nitrogen 10 mg/dL (9-16); Calcium 6.4 mg/dL (8.4-10.2); Carbon Dioxide 28 mmol/L (22-29); Chloride 99 mmol/L (96-108); Creatinine Clr Calc Pharmacy 151.5; Estimated Glomerular Filt Rate > 60; Lipase 17 U/L (8-78); Magnesium 0.9 mg/dL (1.6-2.6); Potassium 3.1 mmol/L (3.3-5.1); Sodium 138 mmol/L (135-145); Total Protein 5.6 g/dL (6.5-8.0)
--- NOTE | 2025-10-14 07:48 | ECG_ITS ---
Test Reason : LOW MAG Blood Pressure : */* mmHG Vent. Rate : 97 BPM Atrial Rate : 97 BPM P-R Int : 158 ms QRS Dur : 94 ms QT Int : 386 ms P-R-T Axes : 3 -2 42 degrees QTcB Int : 490 ms Normal sinus rhythm Prolonged QT Abnormal ECG When compared with ECG of 08-Oct-2025 23:02, Premature ventricular complexes are no longer Present QT has shortened Referred By: Michael Liu Electronically Signed By: Sina Ogden
[2025-10-14] MEDS: Magnesium Sulfate/H2O 2 GM/50 ML PIGGYBACK IV ×2 (08:18→18:23)
[2025-10-14] MEDS: Potassium Chloride ER 10 MEQ TABLET.ER PO (08:24)
[2025-10-14] MEDS: Potassium Chloride Packet 20 MEQ PACKET 40 MEQ PO ×2 (08:24→18:11)
[2025-10-14 08:30] LABS: Free T4 (Free Thyroxine) 0.94 ng/dL (0.71-1.85)
--- NOTE | 2025-10-14 09:13 | P.HPHOSP_ITS ---
History of Present Illness Date of Service: 10/14/25 Attending physician on admission: Davina Posey Chief Complaint: leg swelling This is a 50-year-old male with history of alcohol use disorder, recent admission from October 08 to October 10 who presents to the emergency department with leg swelling. Patient was admitted to the ICU on October 08 due to multiple electrolyte abnormalities, he was downgraded to the medical floor on October 10, later that evening he left against medical advice. Today he said he came to the emergency room because he noticed swelling in both of his legs. This began on Saturday. He denies any shortness of breath, orthopnea and denies previous history of lower extremity edema. In the emergency department today he was not hypoxic, BNP was elevated at 1400. He denies any previous history of congestive heart failure, does not take any diuretics. He reports no alcohol use since he left the hospital. Bilateral venous Doppler ultrasound from October 08 was negative for DVT at that time. Patient denies shortness of breath as stated above however he also states that he uses Primatene mist multiple times daily due to wheezing and chest tightness. Today in the emergency department his H/H was noted to be low but similar to previous admission, he denies any vomiting blood, blood in his stools or dark stools. Potassium and magnesium levels were both low, these were replaced in the emergency department and admission was requested due to electrolyte abnormalities and new onset lower extremity edema. Review of Systems 2 Review of Systems: Yes all other systems are reviewed and are negative Constitutional: Constitutional: Denies chills and Denies fever(s) Cardiovascular: Cardiovascular: Denies chest pain, Denies palpitations, Denies dyspnea and Denies dyspnea on exertion Respiratory: Respiratory: Denies cough, Denies dyspnea and Denies dyspnea on exertion Gastrointestinal: Gastrointestinal: Denies abdominal pain and Denies vomiting Endocrine: Endocrine: Denies palpitations [facility] Medical History COPD (chronic obstructive pulmonary disease) Family History Father Cancer Surgical History H/O hernia repair Social History Household Members: None Housing: Other Housing Other:: mobile home Alcohol intake: current Alcohol intake frequency: 3 or more drinks per day Alcohol type: beer, wine and hard liquor Comment: Twelve white claws a day Patient Tobacco Use Status: Current everyday Tobacco user Tobacco use type: Cigarette Cigarette Packs Per Day: 2 Cigarettes Per Day: 40.0 Substance Use Type: Marijuana Advance Directives: No Advance Directives Information Provided: Yes Do you have a plan to hurt others: No Plan Meds Allergies Allergy/AdvReac Type Severity Reaction Status Date / Time No Known Allergies Allergy Verified 10/14/25 06:47 Active Medications: Current Medications Acetaminophen (Acetaminophen 325 Mg Tablet) 650 mg PO Q6H PRN PRN Reason: Pain, Mild 1-3,fever,headache Albuterol/Ipratropium (Albuterol/Iprat 2.5/0.5mg 3 Ml Ampul.Neb) 3 ml INHALE Q4H PRN PRN Reason: Shortness of Breath/Wheezing Calcium Carbonate (Calcium Carbonate 750 Mg Tab.Chew) 750 mg PO Q4H PRN PRN Reason: Heartburn Magnesium Hydroxide (Milk Of Magnesia 30 Ml Oral.Susp) 30 ml PO DAILY PRN PRN Reason: Constipation Melatonin (Melatonin 3 Mg Tablet) 6 mg PO BEDTIME PRN PRN Reason: Insomnia Nicotine (Nicotine 21 Mg Patch.Td24) 21 mg TRANSDERMA DAILY JUN Nicotine Polacrilex (Nicotine Polacrilex 2 Mg Gum) 2 mg BUCCAL Q2H PRN PRN Reason: Nicotine Cravings Sodium Chloride (0.9 % Sodium Chloride Flush 3 Ml Syringe) 3 ml IVFLUSH QSHIFT [facility] Home Medications ?Medication ?Instructions ?Recorded ?Confirmed ?Last Taken ?Type omeprazole 20 mg capsule,delayed 20 mg PO BID@0630,163 0 09/26/21 10/14/25 10/14/25 History release epinephrine 0.125 mg/actuation 1 puff inhalation Q4H P RN 08/31/25 10/14/25 1 Week Ago History aerosol inhaler (Primatene Mist) Shortness Of Breath O r Wheezing ~10/01/25 Physical Exam 2 Vital Signs and Narrative: Vital Signs: Last Vital Signs Temp 98.2 F 10/14/25 08:04 Pulse 97 10/14/25 08:04 Resp 20 10/14/25 08:04 BP 140/89 H 10/14/25 08:04 Pulse Ox 97 10/14/25 08:04 O2 Del Method Room Air 10/14/25 08:04 BMI result Body Mass Index 25.4 Const: General: cooperative, comfortable, no acute distress, alert and awake Nutritional Appearance: average body habitus Orientation/consciousness: p atient oriented x3 Resp: Other: scattered expiratory wheeze Effort & Inspection: normal respiratory effort and no use of accessory muscles Cardio: Rate: regular rate GI: Inspection: No distended Palpation (GI): Soft to palpation and nontender Neuro: General: patient oriented x3, moves all extremities and CN's II-XI intact bilaterally Extrem: Other: b/l pedal/ankle edema 2-3+ Results Labs 10/14/25 07:06 10/14/25 07:06 Labs: Laboratory Results - last 24 hr 10/14/25 10/14/25 07:06 07:07 MCV 108.5 H MCH 38.0 H MCHC 35.0 RDW 21.2 H Plt Count 274 MPV 10.0 Immature Gran % (Auto) 0.4 Neut % (Auto) 74.8 H Lymph % (Auto) 15.6 L [place] % (Auto) 7.8 Eos % (Auto) 0.9 Baso % (Auto) 0.5 Lymph # (Auto) 1.3 [place] # (Auto) 0.6 Eos # (Auto) 0.1 Baso # (Auto) 0.0 Abs Immat Gran (auto) 0.03 Absolute Neuts (auto) 6.1 Absolute Nucleated RBC 0.000 Nucleated RBC % (auto) 0.0 Anion Gap 14 Estim Creat Clear Calc 151.5 Estimated GFR > 60 Random Glucose 95 Calcium 6.4 L Magnesium 0.9 L* Total Bilirubin 0.5 AST 58 H ALT 9 Alkaline Phosphatase 117 NT-Pro-B Natriuret Pep 1427.5 H Total Protein 5.6 L Albumin 3.2 L Lipase 17 TSH 6.39 H Free T4 0.94 Ethyl Alcohol < 10 Assessment and Plan (1) Bilateral leg edema: Status: Acute (2) Hypomagnesemia: Status: Acute (3) Hypokalemia: Status: Acute Plan This is a 50-year-old male with a history of alcohol dependence, 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, COPD, recent admission from October 08 to October 10 for electrolyte abnormalities, anemia who left AMA on October 10, returns to the emergency room with lower extremity edema found to have persistent severe electrolyte abnormalities hypomagnesemia/hypokalemia Replace with both PO and IV magnesium Replace with PO potassium follow levels closely, repeat mag this evening tele monitoring hypocalcemia corrected ca 7.0 low likely due to hypomagnesemia Need to replace magnesium before calcium will improve lower extremity edema possibly due to previous admission and fluids administered; albumin also low no orthopnea, CHEATHAM but pro-BNP elevated will obtain ECHO keep legs elevated hold off of lasix due to severe electrolyte abnormalities Possible Small right pleural effusion possible atelectasis not symptomatic, not hypoxic Incentive spirometry outpatient follow up CXR Alcohol dependence Patient denies drinking alcohol since last admission etoh level <10 Does not appear to be withdrawing at this time Monitor on CIWA COPD has been using primatine mist OTC daily some scattered wheezing on exam prn duonebs Macrocytic anemia H/H similar to previous B12, folate levels within normal limits Denies active bleeding will need outpatient follow-up h/o gerd hold omeprazole for now as this can contribute to low mag levels Tobacco dependence Smoking cessation advised NRT DVT ppx -mechanical devices Patient will likely require 2 midnight stay in the hospital for management of severe electrolyte abnormalities requiring close cardiac monitoring Quality Stroke Does the patient have a stroke diagnosis?: No VTE Prior VTE?: No VTE Risk Level:: Medical - moderate - high VTE Device Contraindication: N/A - Device Ordered VTE Drug Contraindication: Treatment Not Indicated
[2025-10-14] MEDS: Nicotine 21 MG PATCH.TD24 TRANSDERMA (09:35)
--- NOTE | 2025-10-14 09:47 | HO.NURTONUR ---
Karthikeyan is a 50M full code who presented to the ED with bilat lower extrem edema. patient had a recent admission in the icu for alcohol withdrawal, patient has been sober x10 days. noted to have electrolyte abnormality, potassium 3.1 replenished with po. patient mag 0.9, given IV mag and po mag. patient is alert an oriented x4, ambulatory, has a #22 in the RFA.
--- NOTE | 2025-10-14 11:06 | PHA.MEDREC ---
Pharmacy Consult ? Medication Reconciliation Pharmacy has completed the medication reconciliation. Spoke to patient to confirm medication list. Last dose of medication was this morning 10/14/25.
[2025-10-14 11:15] LABS: Cannabinoid Screen Urine POSITIVE (Not Detect)
[2025-10-14 17:59] LABS: Magnesium 1.2 mg/dL (1.6-2.6)
[2025-10-15 00:36] VITALS: PULSE 100; RESP 18; O2SAT 98
[2025-10-15] MEDS: Albuterol/Iprat 2.5/0.5MG 3 ML AMPUL.NEB INHALE ×2 (00:37→08:30)
[2025-10-15 03:13] VITALS: BP 149/93; PULSE 97; RESP 19; TEMP 37.1; O2SAT 98
[2025-10-15 07:01] LABS: Anion Gap 15 (12-20); Blood Urea Nitrogen 7 mg/dL (9-16); Calcium 6.8 mg/dL (8.4-10.2); Carbon Dioxide 24 mmol/L (22-29); Chloride 103 mmol/L (96-108); Creatinine Clr Calc Pharmacy 161.6; Estimated Glomerular Filt Rate > 60; Magnesium 1.6 mg/dL (1.6-2.6); Potassium 3.7 mmol/L (3.3-5.1); Sodium 138 mmol/L (135-145)
[2025-10-15 08:00] VITALS: BP 159/94; PULSE 99; RESP 18; TEMP 36.8; O2SAT 98
[2025-10-15] MEDS: Nicotine 21 MG PATCH.TD24 TRANSDERMA (08:25)
[2025-10-15 08:30] VITALS: PULSE 99; RESP 18; O2SAT 97
[2025-10-15] MEDS: 0.9 % Sodium Chloride Flush 3 ML SYRINGE IVFLUSH (09:46)
--- NOTE | 2025-10-15 10:50 | MHC.CM.PN ---
PT LIVES ALONE HAS OWN RIDE HOME WILL BE SEEN BY [facility] DC PLAN HOME
--- NOTE | 2025-10-15 13:26 | MHC.CM.PN ---
PT LEFT AMA
== END 2025-10-15 11:30 | disposition left against medical advice (07) | DRG 425 ==
LOC: HO.ED 07:33 → HO.EDOVER 08:46 → HO.IMC 16:35
PROVIDERS: Admitting Provider Physician Assistant Medical; Emergency Provider Emergency Medicine; Visit Provider Student in an Organized Health Care Education/Training Program
DX: E87.6 Hypokalemia (principal); E83.51 Hypocalcemia; F17.210 Nicotine dependence, cigarettes, uncomplicated; E83.42 Hypomagnesemia; K21.9 Gastro-esophageal reflux disease without esophagitis; D53.9 Nutritional anemia, unspecified; G62.1 Alcoholic polyneuropathy; J98.11 Atelectasis; F10.20 Alcohol dependence, uncomplicated; J44.9 Chronic obstructive pulmonary disease, unspecified; Z71.6 Tobacco abuse counseling; Z79.899 Other long term (current) drug therapy
CPT/HCPCS: 36415; 71046; 80048; 80053; 80307; 83690; 83735; 83880; 84439; 84443; 85025; 93005; 99285; J3475

== ENCOUNTER → 2025-10-14 07:48 | Outpatient (BNV) | payer OTHER, SELFPAY | PROVIDERS: Admitting Provider Physician Assistant Medical; Emergency Provider Emergency Medicine; Visit Provider Internal Medicine Cardiovascular Disease | DX: R94.31 Abnormal electrocardiogram [ECG] [EKG] (principal); E61.2 Magnesium deficiency | CPT/HCPCS: 93010 ==

== ENCOUNTER → 2025-10-14 07:49 | Outpatient (BNV) | payer OTHER, SELFPAY | PROVIDERS: Admitting Provider Physician Assistant Medical; Emergency Provider Emergency Medicine; Visit Provider Radiology Vascular & Interventional Radiology | DX: R53.1 Weakness (principal) | CPT/HCPCS: 71046 ==

== ENCOUNTER → 2025-10-14 08:46 | Outpatient (BNV) | payer OTHER, SELFPAY | PROVIDERS: Admitting Provider Physician Assistant Medical; Emergency Provider Emergency Medicine; Visit Provider Physician Assistant Medical | DX: R60.0 Localized edema (principal); E83.42 Hypomagnesemia; E87.6 Hypokalemia | CPT/HCPCS: 99223 ==

== ENCOUNTER → 2025-11-15 08:41 | Outpatient (BNV) | payer OTHER, SELFPAY | PROVIDERS: Emergency Provider Emergency Medicine; Visit Provider Radiology Diagnostic Radiology | DX: S09.90XA Unspecified injury of head, initial encounter (principal); Z04.3 Encounter for examination and observation following other accident; R10.84 Generalized abdominal pain | CPT/HCPCS: 70450; 71045 ==

== ENCOUNTER → 2025-11-15 08:41 | Outpatient (BNV) | payer OTHER, SELFPAY | PROVIDERS: Admitting Provider Hospitalist; Emergency Provider Emergency Medicine; Visit Provider Internal Medicine | DX: R00.0 Tachycardia, unspecified (principal) | CPT/HCPCS: 93010 ==

== ENCOUNTER 2025-11-15 10:51 | Outpatient (BNV) | payer OTHER, SELFPAY | END 2025-11-17 05:09 | PROVIDERS: Admitting Provider Hospitalist; Emergency Provider Emergency Medicine; Visit Provider Radiology Diagnostic Radiology | DX: R10.9 Unspecified abdominal pain (principal); R91.8 Other nonspecific abnormal finding of lung field | CPT/HCPCS: 71045; 71275; 74018 ==

== ENCOUNTER 2025-11-15 10:51 | Outpatient (BNV) | payer OTHER, SELFPAY | END 2025-11-17 17:40 | PROVIDERS: Admitting Provider Hospitalist; Emergency Provider Emergency Medicine; Visit Provider Internal Medicine | DX: I48.91 Unspecified atrial fibrillation (principal); I21.19 ST elevation (STEMI) myocardial infarction involving other coronary artery of inferior wall | CPT/HCPCS: 93010 ==

== ENCOUNTER → 2025-11-15 10:51 | Outpatient (BNV) | payer OTHER, SELFPAY | PROVIDERS: Admitting Provider Hospitalist; Emergency Provider Emergency Medicine; Visit Provider Student in an Organized Health Care Education/Training Program | DX: J44.1 Chronic obstructive pulmonary disease with (acute) exacerbation (principal); J96.01 Acute respiratory failure with hypoxia | CPT/HCPCS: 99233; 99499 ==

== ENCOUNTER → 2025-11-15 10:51 | Outpatient (BNV) | payer OTHER, SELFPAY | PROVIDERS: Admitting Provider Hospitalist; Emergency Provider Emergency Medicine; Visit Provider Internal Medicine Pulmonary Disease | DX: J10.1 Influenza due to other identified influenza virus with other respiratory manifestations (principal); J96.01 Acute respiratory failure with hypoxia; J81.1 Chronic pulmonary edema | CPT/HCPCS: 99223 ==

== ENCOUNTER → 2025-11-15 10:51 | Outpatient (BNV) | payer OTHER, SELFPAY | PROVIDERS: Admitting Provider Hospitalist; Emergency Provider Emergency Medicine; Visit Provider Internal Medicine | DX: I48.91 Unspecified atrial fibrillation (principal); J96.01 Acute respiratory failure with hypoxia; E87.6 Hypokalemia; E83.42 Hypomagnesemia | CPT/HCPCS: 99223 ==